=== PATIENT | male | born 1955 | race Caucasian/White ===

== ENCOUNTER 2017-02-09 21:20 | Emergency (ER) | payer MEDICARE, MEDICAID ==
[2017-02-09 22:35] LABS: Bilirubin Negative (Negative); Blood, Urine Large (Negative); Clarity CLEAR (Clear); Glucose, Urine (Dipstick) Negative (Negative); Leukocyte Small (Negative); Nitrite Negative (Negative); Protein, Urine (Dipstick) Negative (Neg-Trace); Specific Gravity, Urine 1.026 (1.002-1.036); Urobilinogen 0.2 mg/dL (0.2-1.0); pH, Urine 5.5 (5.0-9.0)
[2017-02-09 22:37] LABS: Bacteria/HPF None Seen HPF (None Seen); Hyaline Casts/LPF 0-3 HYALINE CAST LPF (0-3 Hyaline); RBC/HPF GREATER THAN 50-TNTC HPF (0-3); Squamous Epithelial 0-3 HPF (0-3)
== END 2017-02-09 23:38 | disposition home or self-care (01) ==
LOC: ERS 21:20
DX: N39.0 Urinary tract infection, site not specified (principal); L80 Vitiligo; E03.9 Hypothyroidism, unspecified
CPT/HCPCS: 81003; 81015; 99283

== ENCOUNTER 2017-06-28 09:35 | Outpatient (CLI) | payer MEDICARE, MEDICAID ==
--- NOTE | 2017-06-28 12:06 | ULT ---
THYROID ULTRASOUND: Indication: Hypothyroidism. Comparison: 06-13-16 FINDINGS: The right thyroid lobe measures 3.6 x 1.4 x 1.1 cm. The left thyroid lobe measures 3.1 x 1.2 x 1.7 cm. The thyroid isthmus measures 0.4 cm. Again seen is a very heterogeneous thyroid gland. A more heterogeneous hypoechoic lesion was measured on the prior exam, measuring approximately 1.3 x 0.9 cm. A more discrete nodule is visualized in thi s region on the current examination measuring 0.8 cm in its greatest dimension. The lesion is solid w ith isoechoic to hyperechoic subcomponents. The lesion does appear wider than tall with ill-defined m argins and no specific calcifications. It is consistent with a TIRADS III lesion. A similar appearing lesion is seen within the posterior aspect of the right thyroid gland measuring 3 mm in size. An additional TIRADS III lesion is seen within the left thyroid gland measuring 1.2 x 0.6 x 0.8 cm. T his is stable to the prior exam. There is a 9 mm TIRADS III lesion within the superior pole of the le ft thyroid gland. The extent of the vascularity involving the thyroid gland appears slightly less pro minent than on the prior study. IMPRESSION: 1. Stable examination of the thyroid gland with heterogeneous nodules seen throughout the thyroid gla nd with slight increase in vascularity. This can be seen with thyroiditities such as Ce. 2. 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 No additional follow up is recommen ded for these nodules due to their size. POS: [facility]
== END 2017-06-28 09:36 | disposition home or self-care (01) ==
LOC: ULT 09:35
PROVIDERS: ATTEND Otolaryngology Plastic Surgery within the Head & Neck
DX: E03.9 Hypothyroidism, unspecified (principal); E04.2 Nontoxic multinodular goiter
CPT/HCPCS: 76536

== ENCOUNTER 2017-07-21 22:06 | Inpatient (IN) | payer MEDICARE, MEDICAID ==
[2017-07-21 23:07] LABS: Hemoglobin 11.5 g/dL (14.0-18.0); Mean Corpuscular Hemoglobin 33.6 pg (27.0-31.0); Mean Platelet Volume 5.3 fL (7.4-10.4); Platelet Count 205 thou/uL (130-400); RBC Distribution Width 14.7 % (11.5-14.5); Red Blood Cell (RBC) Count 3.41 mill/uL (4.70-6.10)
[2017-07-21 23:15] LABS: ALT (SGPT) 17 U/L (8-55); AST (SGOT) 23 U/L (5-34); Alkaline Phosphatase 69 U/L (40-150); Anion Gap 11 mmol/L (10-20); BUN (Urea Nitrogen) 20 mg/dL (8.4-25.7); Bilirubin, Total 0.2 mg/dL (0.2-1.2); Calc. Creatinine Clearance 0 mL/min (70-130); Calcium 8.4 mg/dL (7.8-10.44); Carbon Dioxide 27 mmol/L (23-31); Chloride 108 mmol/L (98-107); Estimated GFR-MDRD 44; Globulin 3.3 g/dL (2.4-3.5); Glucose 162 mg/dL (80-115); Potassium 4.1 mmol/L (3.5-5.1); Protein, Total 6.3 g/dL (5.8-8.1); Sodium 142 mmol/L (136-145)
[2017-07-21 23:20] LABS: Anisocytosis SLIGHT = 6-15 cells (100X) (0-5/hpf); Band 28 % (5-11); Lymphocytes 2 % (21-51); MDiff Complete? YES; Macrocytosis SLIGHT = 6-15 cells (100X) (0-5/hpf); Neutrophil 70 % (42-75)
[2017-07-21 23:53] LABS: Magnesium 1.6 mg/dL (1.6-2.6)
[2017-07-22] MEDS ORDERED: Lidocaine 1% (PF) 30 ML VIAL ONE (02:21)
[2017-07-22] MEDS ORDERED: Norepinephrine 8 MG/0.9% NS 250 ML ONE (02:47)
[2017-07-22] MEDS ORDERED: Piperacillin/Tazobactam 4.5 GM VIAL ONE (02:47)
[2017-07-22] MEDS ORDERED: Bacitracin Zinc 1 Packet ONE (03:03)
[2017-07-22] MEDS ORDERED: Norepinephrine 8 MG in Sodium Chloride 0.9% 250 ML 250 ML IVPB SCH (04:45)
[2017-07-22] MEDS ORDERED: Norepinephrine 8 MG/0.9% NS 250 ML IVPB SCH (05:00)
[2017-07-22 05:04] LABS: Lactic Acid 2.5 mmol/L (0.5-2.2)
[2017-07-22] MEDS: Piperacillin/Tazobactam 3.375 GM in Sodium Chloride 0.9% 100 ML IVPB SCH ×3 (05:41→16:33)
[2017-07-22] MEDS: Sodium Chloride 0.9% 1,000 ML IV SCH ×2 (05:41→16:34)
[2017-07-22] MEDS ORDERED: Sodium Chloride 0.9% 500 ML IV SCH (06:45)
[2017-07-22] MEDS ORDERED: Sodium Chloride 0.9% 1,000 ML IV SCH (06:45)
--- NOTE | 2017-07-22 09:15 | RAD ---
CHEST 1 VIEW: HISTORY: CHEST 1 VIEW: HISTORY: Central line placement. COMPARISON: Earlier exam same date. FINDINGS: Cardiac silhouette magnified and enlarged. Pulmonary vasculature is slightly more engorged. The pat ient is rotated leftward. Linear atelectasis projects over the right lung base. The tip of a right subclavian central venous catheter overlies the right atrium. No evidence of pneumothorax. child monitor leads overlie the chest. IMPRESSION: 1. Right subclavian central venous catheter is in good radiographic position. 2. Interval increased pulmonary vascular congestion and right basilar atelectasis. POS: [facility]
[2017-07-22 09:20] LABS: Bacteria/HPF 3+ HPF (None Seen); Hyaline Casts/LPF NONE SEEN LPF (0-3 Hyaline); RBC/HPF 0-3 HPF (0-3); Squamous Epithelial 0-3 HPF (0-3); WBC/HPF 0-3 HPF (0-3)
--- NOTE | 2017-07-22 09:24 | ULT ---
SONOGRAM RIGHT UPPER QUADRANT: HISTORY: Abdominal pain. FINDINGS: Gallbladder is incompletely distended. The patient was not tender over the gallbladder fossa at the time of the exam. The wall is thickened up to 1.2 cm with a small amount of pericholecystic fluid. Common duct 0.5 cm. Liver heterogeneous. A lobular 2.1 cm hyperechoic lesion at the posterior aspec t left lower lob likely represents a hemangioma. No significant free fluid. Right renal cyst partia lly visualized. IMPRESSION: Mild gallbladder wall thickened, the gallbladder is not distended and the patient was not tender over the gallbladder fossa at the time of the exam. Gallbladder wall thickening is nonspecific and may b e related to other process such as chronic liver disease. Findings are not highly suggestive of acut e cholecystitis. POS: [facility]
--- NOTE | 2017-07-22 09:36 | CT ---
PRELIMINARY REPORT/[facility]/EMERGENCY AFTER HOURS PROCEDURE: EXAM: CT Abdomen and Pelvis Without Intravenous Contrast EXAM DATE/TIME: 07/22/2017 12:18 AM CLINICAL HISTORY: 61 years old, male; Pain; Abdominal pain; Generalized; Patient HX: M61 presents to the ed complaining of abdominal pain. Pt. Family states that pt. Has had 2 episodes of vomiting and 2 episodes of diarr hea today TECHNIQUE: Axial computed tomography images of the abdomen and pelvis without intravenous contrast. Coronal reformatted images were created and reviewed. COMPARISON: No relevant prior studies available. FINDINGS: Lung bases: Mild atelectasis in the left lung base. ABDOMEN: Liver: Unremarkable. Gallbladder and bile ducts: Diffuse gallbladder wall thickening. No obvious stones or duct dilation. Pancreas: Unremarkable. No ductal dilation. Spleen: Unremarkable. No splenomegaly. Adrenals: Unremarkable. No mass. Kidneys and ureters: There are multiple non-obstructing bilateral renal calculi. Stomach and bowel: There is diverticular disease of the colon, without evidence of acute diverticulit is. No perforation, or abscess. No signs or history of bleeding provided. No obstruction. PELVIS: Appendix: A normal appendix is identified. Bladder: Apparent bladder wall thickening may be secondary to incomplete filling versus cystitis. No stones. Reproductive: The prostate gland is enlarged. ABDOMEN and PELVIS: Intraperitoneal space: Unremarkable. No free air. No significant fluid collection. Bones/joints: No acute fracture. No dislocation. Soft tissues: Unremarkable. Vasculature: Unremarkable. No abdominal aortic aneurysm. Lymph nodes: Unremarkable. No enlarged lymph nodes. IMPRESSION: Gallbladder wall thickening, correlate clinically for acute cholecystitis. Apparent bladder wall thickening may be secondary to incomplete filling versus cystitis. Clinical and laboratory correlation recommended. No other acute abnormality. Thank you for allowing us to participate in the care of your patient. Dictated and Authenticated by: Vilma Gross MD 07/22/2017 12:58 AM Central Time ([place] & [place]) FINAL REPORT CT ABDOMEN AND PELVIS NONCONTRAST: DATE: 07/22/17. TIME: Performed on an emergency basis at 0020 hours. HISTORY: Bilateral flank pain. FINDINGS: Agree with the preliminary report by Dr. Jarrett from [facility]. Thickening of the gallbla dder wall could reflect acute inflammation. Clinical correlation regarding other signs and symptoms of acute cholecystitis is required. Urinary bladder incompletely distended. Small nonobstructing bi lateral renal calculi. Lack of contrast limits evaluation of the soft tissues. POS: [facility]
--- NOTE | 2017-07-22 09:43 | RAD ---
CHEST 1 VIEW: History Dyspnea. FINDINGS: No comparison. Cardiac silhouette magnified by projection. Pulmonary vasculature upper limits of no rmal with mild reticulonodular interstitial prominence. Mediastinum midline. No lobar consolidation or evidence of pneumothorax. environmental monitoring specialist leads overlie the chest. IMPRESSION: Borderline pulmonary vascular prominence. No florid edema or lobar consolidation. POS: [facility]
[2017-07-22] MEDS: Heparin 5,000 UNITS/ML VIAL SC SCH ×3 (10:54→20:40)
[2017-07-22] MEDS: Hydrocortisone Sod Succ/PF 100 mg/2 ml Vial IVP SCH ×2 (11:08→16:33)
--- NOTE | 2017-07-22 12:13 | HP ---
CHIEF COMPLAINT: Abdominal pain, nausea, vomiting. HISTORY OF PRESENT ILLNESS: The patient is a 61-year-old male, who lives in a care home. The patie nt has a history of mental retardation and he initially used to live with his sister; however, now li ves in a care home. The patient's sister who is at the bedside, stated that he was called from the care home, stating that patient had 2 episodes of vomiting and 2 episodes of diarrhea today. The pa armando also has been complaining of abdominal pain. The patient was then brought into the hospital fo r an evaluation. The patient currently is unable to provide any history; however, he does state that he does have pain in his abdomen. No diarrhea has been noted since the patient has been in the ER, nor have any nausea or vomiting been noted. PAST MEDICAL HISTORY: History of hypothyroidism, history of frequent UTIs in the past. PAST SURGICAL HISTORY: The patient has unable to obtain any kind of surgical history since patient d oes not know. SOCIAL HISTORY: Denies per family. No alcohol or drug use or smoking history. ALLERGIES: He has got no known allergies. MEDICATIONS: Per chart is iron 325 one daily, vitamin B12 one daily, levothyroxine 100 mcg daily and there are 2 antibiotics that are noted Cipro and Keflex, and the patient's family does not know if h e takes that or if that is past medication history. REVIEW OF SYSTEMS: Unable to obtain since the patient is unable to provide me review of systems. PHYSICAL EXAMINATION: VITAL SIGNS: Blood pressure of 90/57, pulse of 100, respirations are 18, and O2 sat 99% room air. GENERAL: He is awake, alert, follows commands, oriented to self. CARDIOVASCULAR: S1 and S2 present, sinus tachycardia. LUNGS: Clear to auscultation. No rhonchi or wheezes noted. ABDOMEN: Bowel sounds are present x2. Pain upon palpation of the right upper quadrant epigastric ar ea and also bilateral lower abdomen area. EXTREMITIES: No edema. Pedal pulses are present x2. HEENT: Normocephalic, atraumatic. Patient's mucous membranes are very dehydrated, very dry. SKIN: Patient has vitiligo. LABORATORY DATA: As following, WBCs of 11.0, however, bands of 28, hemoglobin of 11.5, hematocrit of 35.8, platelets of 205. Chemistry: Sodium of 142, potassium of 4.1, chloride of 108, BUN of 20, cr eatinine of 1.59, lactic acid of 2.5. Lipase is 18. LFTs are normal. The patient did have a CT abd omen and pelvis, which indicated thickening of the gallbladder and thickening of the bladder, unable to get a urine sample given patient's anatomy. The ED physician did attempt to surgically excise his foreskin for the urinary catheter to pass; however, unsuccessful. The patient's chest x-ray appears that he does have some pulmonary congestion, mild. There is a left retrocardiac significant possibl e infiltrate. ASSESSMENT AND PLAN: The patient is a very pleasant 61-year-old male, who lives in a care home, com es in for abdominal pain, nausea, and vomiting. 1. Sepsis could be possible from a urinary tract infection versus acute cholecystitis versus even pn eumonia. A right upper quadrant ultrasound has been ordered for this patient. I will start the roman ent on broad spectrum antibiotics with Zosyn and vancomycin. According to the family, has been havin g significant amounts of frequent UTIs. Last urine culture in May, indicated a normal skin alvin; however, the culture prior to that also indicated normal skin alvin. The patient's family states yina t he is known to hold, does not go to the bathroom frequently. The patient was given 2-1/2 liters of normal saline, still continued to be hypotensive and was started on Levophed. Blood cultures were d rawn. Urine culture has not been drawn since unable to get a urine culture. 2. Leukocytosis with bandemia, most likely secondary to his underlying sepsis. 3. Acute kidney injury on chronic kidney disease. Mild elevation of creatinine, most likely seconda ry to dehydration, we will continue to monitor. The patient's bladder was scanned by the nurse and s tated that patient had only 120 mL in his bladder. 4. Lactic acidosis, most likely secondary to his sepsis. The patient currently has been admitted to the CCU. Also, code status was discussed with the patient's family, the patient's sister, who is th e POA. The patient's sister currently wants him to be FULL CODE; however, they are very reasonable a nd stated that if in any event the patient was unable to walk around and enjoy food, they would not d o heroic measures to keep him alive. The patient at baseline, he is able to ambulate and socialize w ith other group members at his care home. 5. Deep vein thrombosis prophylaxis. We will put patient on subcu heparin.
[2017-07-22] MEDS ORDERED: Bupivacaine/Epinephrine 0.25% 30 ML VIAL ONE (12:25)
[2017-07-22] MEDS ORDERED: Fentanyl 100 MCG/2 ML VIAL ONE (12:40)
[2017-07-22] MEDS ORDERED: HYDROmorphone 0.5 MG/0.5 ML SYRINGE ONE (12:40)
--- NOTE | 2017-07-22 13:02 | CON ---
DATE OF CONSULTATION: 07/22/2017 REQUESTING PHYSICIAN: Dr. Romario Singer. HISTORY OF PRESENT ILLNESS: Mr. Lott is a 61-year-old man with a developmental disorder who is a resident of a usp. Apparently, the family was notified earlier in the day that the patient was having multiple episodes of emesis and diarrhea. EMS was called. The patient was brought to the emergency department. He ar rived emergency department somewhat sleepy and confused. His blood pressure was quite low. He required almost 5 liters of crystalloids for resuscitation. Initial workup at the time included a CT scan of the abdomen and pelvis, which was suggestive of acut e cholecystitis. The patient was admitted to intensive care unit with broad spectrum antibiotics initiated. Faust cat heter was placed and urinalysis has been initiated. The patient is currently on vasopressor support. His blood pressure has since stabilized. He is vicente ble to give history, so most of the history is obtained from chart review and from speaking to the pa armando's sister and power of trade mark attorney. PAST MEDICAL HISTORY: Pertinent for hypothyroidism. PAST SURGICAL HISTORY: Has no previous surgeries. SOCIAL HISTORY: He resides at a [facility]. He has no cigarette smoking, ethanol or illicit drug ab use history. FAMILY HISTORY: Noncontributory for this patient's age. PREHOSPITAL MEDICATIONS: Incudes ferrous sulfate 325 mg p.o. daily, vitamin B12 500 mcg p.o. daily, ciprofloxacin 250 mg p.o. daily, levothyroxine 100 mcg p.o. daily. ALLERGIES: Patient has no known drug allergies. REVIEW OF SYSTEMS: Could not be obtained due to this patient's baseline mental status. PHYSICAL EXAMINATION: VITAL SIGNS: This morning includes blood pressure 101/74, pulse is 102, respiratory rate is 17. Pat ient is on norepinephrine by continuous infusion. Oxygen saturation is 93% on 1 liter nasal cannula oxygen. HEENT: Reveals normocephalic and atraumatic. Pupils are equal, round, and reactive to light and acc ommodation. Extraocular muscles are intact bilaterally. He has no sclerae icterus present. HEART: Reveals regular rate with mild sinus tachycardia. No murmurs or gallops auscultated. CHEST: Lungs clear to auscultation bilaterally. Breathing regular and unlabored. ABDOMEN: Moderately distended and firm. He has right upper quadrant tenderness to palpation. Liver and spleen otherwise nonpalpable below costal margin. EXTREMITIES: Reveals 2+ radial and pedal pulses bilaterally. No ankle edema is present. NEUROLOGIC: Reveals no focal deficits present. PERTINENT LABORATORY DATA: Today includes CBC with 11,000 white blood cells, hemoglobin and hematocr it 11.5 and 35.8 respectively. Platelet count is 205,000. Metabolic profile: Sodium 142, potassium is 4.1, chloride is 108, bicarbonate is 27, BUN 20, creatinine is 1.59, glucose 162. Lactic acid 2. 5, magnesium 1.6, total bilirubin 0.2, AST and ALT normal at 23 and 17 respectively. Serum lipase is normal at 18. I have personally reviewed the CT scan of the abdomen and pelvis as well as the abdominal ultrasound obtained this morning, both of which are consistent with a markedly inflamed gallbladder with signifi cant gallbladder wall thickening. There is no gallstone seen. IMPRESSION: 1. Acute gangrenous acalculous cholecystitis. 2. Severe septic shock secondary to #1. 3. Acute kidney injury, secondary to #1. PLAN: Laparoscopic cholecystectomy. I have informed the patient's power of trade mark attorney of the above fi ndings and recommendations. I have also informed her of the risks and benefits of the proposed surge ry to include, but not limited to bleeding, infection, injury to bile duct or surrounding structures. The patient's power of trade mark attorney indicates understanding of information given. I answered her all q uestions. She has granted consent for this surgical intervention.
--- NOTE | 2017-07-22 13:57 | CON ---
DATE OF CONSULTATION: 07/22/2017 Consultation is requested for what is listed is paraphimosis, but this is not what he had. He only had phimosis--unless a procedure was done in the ER to reduce paraphimosis. I doubt that, as there was no swelling of the prepuce/ prepucial tissue, and there was difficulty with getting a catheter placed. HISTORY OF PRESENT ILLNESS: The patient is a 61-year-old gentleman with special needs. He has minimal ability to converse, but seems to be admitted with abdominal pain, nausea, vomiting, and diarrhea from a long term and I asked if he has penile pain, he confirms; however, he answers yes to multiple questions and I am not sure if this is an accurate answer. PAST MEDICAL HISTORY: Significant for mental retardation with special needs and hypothyroid. PAST SURGICAL HISTORY: I do not see anything listed, so I am unsure of whether he has had any actual surgeries. ALLERGIES: None. MEDICATIONS: Iron, vitamin B12, Align and it is listed that he was already on Keflex and Cipro, I do not know why, Synthroid. SOCIAL HISTORY: Not aware of any alcohol or drug abuse from his history and he does live in a facility. REVIEW OF SYSTEMS: He is unable to give me this, but in reviewing prior records , it looks like he had a urinary tract infection diagnosed in 01/2017 and presented to the ER 2 days after starting antibiotics with gross hematuria and was discharged out and not admitted. As best I can tell, he has not had urologic follow up. He also had a recent thyroid ultrasound in June of this year that showed stable heterogeneous nodules and nothing of concern consistent with Ce's. FAMILY HISTORY: I do not see any documentation of this. PHYSICAL EXAMINATION: GENERAL: He is lying comfortably in the bed. He has significant vitiligo with prominent hyperpigmentation and hypopigmentation of his face. NECK: He has no obvious JVD. CARDIOVASCULAR: His heart was regular rate and rhythm. Borderline tachycardic. LUNGS: He had bilateral rhonchi. ABDOMEN: Soft, mildly distended, no significant tenderness. GENITOURINARY: Testes were descended bilaterally. Phallus was uncircumcised with phimosis and it appears as though a procedure or some type of incision had already been performed in the ED as there was slight bleeding that had coagulated and laceration noted, but no Faust in place. EXTREMITIES: There was no lower extremity edema. NEUROLOGIC: From a patient orientation standpoint, he responded in appropriate fashion to questions, but simply with nods and no significant verbal communication was had to assess his orientation. LABORATORY DATA AND IMAGING: Reveal to have anemia and a white count of 11.0. BUN and creatinine of 20 and 1.59, which his baseline appears to be 1.25. No urinalysis has at this time. CT scan without contrast from 07/22/2017 personally revealed a 6 x 5 mm left lower pole stone with a uniformly thickened bladder, enlarged prostate with intravesical components, but no hydronephrosis or masses. I then placed a catheter after evaluating the foreskin, it was questionable whether a catheter would go through the very narrow prepuce opening, but he was prepped and draped in sterile fashion, and then a 16 Coude was manipulated beyond the phimotic skin and into the urethra without any difficulty. Then it was placed into the bladder with some resistance noted. So he may have some urethral narrowing, but no obvious stricture. It was placed all the way into the bladder without significant difficulty for yellow urine that was then sent for both microscopic analysis and culture. ASSESSMENT AND PLAN: We have a 61-year-old male with concerns for sepsis without an obvious etiology, but concern for cholecystitis and possible urinary tract infection with obvious phimosis, who now has an indwelling catheter, and is on IV antibiotics. I would await culture and taper antibiotics accordingly-- and the length of time would depend on his blood cultures being positive or not. He can continue the indwelling for now, and I will order when to remove it. In the long-term, he needs a circumcision. [facility]
--- NOTE | 2017-07-22 14:11 | CON ---
DATE OF CONSULTATION: 07/22/2017 HISTORY OF PRESENT ILLNESS: Parveen Lott this morning is in the ICU, hypotensive with presumed sep sis. Admitted last night with concerns regarding ICU care. Surgery has seen the patient on emergenc y basis and told has a plan to do an emergency cholecystectomy. The patient apparently presented to the ER with abdominal pain, nausea, and vomiting. He was found to have acute cholecystitis. PAST MEDICAL HISTORY: Apparently pertinent for hypothyroidism. Presumed B12 deficiency. MEDICATIONS: His list of medicine from home includes Synthroid 100, vitamin B, ferrous sulfate. PAST SURGICAL HISTORY: Apparently none. ALLERGIES: None. REVIEW OF SYSTEMS: Difficult to obtain. PHYSICAL EXAMINATION: VITAL SIGNS: Blood pressure 101/74, sats are 94% on 2 liters, respirations 18, pulse 80. GENERAL: Awake, responsive, denies any discomfort. CHEST: Decreased breath sounds without any wheezing. CARDIAC: Normal S1, S2, no gallop. ABDOMEN: Distended, soft. LABORATORY DATA: White count 11,000, H and H 11 and 35, platelet count 205, 70 segs, and 28 bands. Creatinine 1.59. IMPRESSION: 1. Sepsis secondary to cholecystitis. 2. Phimosis. PLAN: He was started on vancomycin and Zosyn which should be probably adequate. I have ordered a co rtisol level. Start low dose hydrocortisone. We will follow while in the ICU. Surgery is contemplated later on today. This is a consultation note, 70 minutes of which 50% in direct patient care.
[2017-07-22] MEDS ORDERED: Promethazine HCl 25 MG/ML VIAL IM PRN (14:14)
[2017-07-22] MEDS ORDERED: Promethazine HCl 25 MG/ML VIAL SLOW IVP PRN (14:14)
[2017-07-22] MEDS ORDERED: Ondansetron HCl/PF 4 MG/2 ML Vial IVP PRN (14:14)
[2017-07-22] MEDS: traMADol HCl 50 MG TAB PO PRN (15:36)
--- NOTE | 2017-07-22 15:49 | PDOC.PN ---
- Subjective Encounter Start Date: 07/22/17 Encounter Start Time: 15:47 Subjective: alert, nonvebal, no distress - Objective MAR Reviewed: Yes Vital Signs & Weight: Vital Signs (12 hours) Temp Pulse Resp Pulse Ox 07/22/17 08:00 98.6 F 94 18 94 L 07/22/17 07:00 98.6 F 07/22/17 06:49 94 L 07/22/17 05:24 99.4 F Weight Admit Weight 130 lb 11.746 oz Weight 130 lb 11.746 oz Most Recent Monitor Data Heart Rate from ECG 79 NIBP 107/63 NIBP BP-Mean 79 Respiration from ECG 10 SpO2 94 I&O: 07/21/17 07/22/17 07/23/17 06:59 06:59 06:59 Intake Total 39.3 500 Output Total 0 460 Balance 39.3 40 Result Diagrams: 07/21/17 22:45 07/21/17 22:45 Phys Exam - Physical Examination Neck: no JVD Respiratory: clear to auscultation bilateral Cardiovascular: RRR, no significant murmur Gastrointestinal: soft, positive bowel sounds mildly tender, post lap brad Musculoskeletal: no edema Dx/Plan (1) Sepsis Code(s): A41.9 - SEPSIS, UNSPECIFIED ORGANISM Status: Acute Qualifiers: Sepsis type: sepsis due to unspecified organism Qualified Code(s): A41.9 - Sepsis, unspecified organism (2) Sepsis associated hypotension Code(s): A41.9 - SEPSIS, UNSPECIFIED ORGANISM Status: Acute (3) Lactic acidosis Code(s): E87.2 - ACIDOSIS Status: Acute (4) Acute renal failure Status: Acute Qualifiers: Acute renal failure type: unspecified Qualified Code(s): N17.9 - Acute kidney failure, unspecified - Plan post brad -: taper pressors as possible, no Hx on his Nl BP -: cont iv antibx, blood, urine EDWIN pending * .
--- NOTE | 2017-07-22 16:59 | OP ---
DATE OF OPERATION: 07/22/2017 PREOPERATIVE DIAGNOSIS: Acute cholecystitis. POSTOPERATIVE DIAGNOSIS: Acute cholecystitis. OPERATIONS PERFORMED: Laparoscopic cholecystectomy. SURGEON: True Carter D.O. ANESTHESIA: General endotracheal. ESTIMATED BLOOD LOSS: 10 mL. FLUIDS GIVEN: 900 mL crystalloids. SPONGE AND INSTRUMENT COUNT: Certified as correct x2. COMPLICATIONS: None apparent. INDICATIONS FOR OPERATION: A 61-year-old man presented with abdominal pain associated with hypotensi on. Clinical and radiographic examination was consistent with acute cholecystitis with severe septic shock. The patient was brought to the operating room for laparoscopic cholecystectomy. Findings are consistent with gallbladder in the usual anatomic location, completely encased by omenta l adhesions. There was a large pericholecystic fluid noted. No evidence of a gangrenous cholecystit is. DESCRIPTION OF OPERATION: Informed consent obtained from the patient's power of mergers and acquisitions attorney. The patie nt was brought to the operating room and placed in spine position. Following general anesthesia, a p revious Faust catheter was placed to bedside drain. The abdomen was sterilely prepped and draped in usual fashion. The skin below the umbilicus was infiltrated with 0.25% Marcaine with epinephrine. A small curvilinear infraumbilical incision was made using an 11 scalpel. Umbilical stalk grasped wit h Cammie and elevated. Veress needle inserted through the incision and placed in the peritoneal cavi ty through which the abdomen was insufflated with 3 liters of CO2 gas. Intraabdominal pressure noted at 2 mmHg. Following abdominal insufflation, Veress needle was removed and a 5-mm trocar introduced using the Visiport under laparoscopy. Laparoscopy confirmed proper placement of the port, no injuri es to underlying structures. Additional laparoscopy reveals gallbladder in the usual anatomic locati on, completely encased by omental adhesions. Under direct laparoscopy, a 12-mm epigastric and two 5- mm right lateral subcostal ports were placed after the overlying skin were infiltrated with 0.25% Mar carina with epinephrine and appropriate incisions made. The patient was placed in a reverse Trendelenburg position, rotated to his left. I introduced the Chance orourke dissector with cautery, using this to take down omental adhesions to reveal the fundus of the gallbladder. A MyLuvsige grasper introduced through the right lateral subcostal port grasping the fun dus of the gallbladder, which was elevated cephalad. I then used a [place] dissector with cautery t o take down omental adhesions from the remainder of the gallbladder. A second Prestige grasper intro duced through the right medial subcostal port grasping the Arias's pouch, which was retracted later ally. An anterior coursing cystic artery was dissected free from surrounding structures and divided between clips. Two clips applied proximally and one clip at the junction of the cystic artery and ga llbladder. The cystic duct was dissected free from surrounding structures and divided between clips in a similar fashion. Gallbladder surface removed from the liver bed using cautery. This was then d elivered off the abdominal cavity using an EndoCatch. Operative site was inspected for good hemostas is. All clips remain in place, no bile stains noted. Finding no other pathology, laparoscopy was te rminated. Fascia of the epigastric port was closed using 0 Vicryl suture and Endo closure device und er laparoscopy. The abdomen was desufflated. All ports and instruments removed and accounted for. Skin incisions were closed using 4-0 Monocryl suture in subcuticular fashion. Dermabond was applied over the incisions. The patient tolerated the operation without any apparent complication and was re turned to the recovery room in satisfactory condition.
[2017-07-22] MEDS ORDERED: PROPOFOL 200 MG/20 ML VIAL ONE (18:10)
[2017-07-22] MEDS ORDERED: Lidocaine 1% PF 5 ML VIAL ONE (18:10)
[2017-07-22] MEDS: Acetaminophen 500 MG TAB PO SCH (20:39)
[2017-07-23] MEDS: Piperacillin/Tazobactam 3.375 GM in Sodium Chloride 0.9% 100 ML IVPB SCH ×5 (00:01→23:12)
[2017-07-23] MEDS: Hydrocortisone Sod Succ/PF 100 mg/2 ml Vial IVP SCH ×2 (00:01→05:14)
[2017-07-23] MEDS: Acetaminophen 500 MG TAB PO SCH ×5 (00:02→23:13)
[2017-07-23] MEDS: Sodium Chloride 0.9% 1,000 ML IV SCH ×3 (00:03→20:58)
[2017-07-23 01:07] LABS: Vancomycin, Trough 3.9 ug/mL
[2017-07-23] MEDS ORDERED: Vancomycin HCl 1 GM in Premix Bag 1 BAG IVPB SCH (01:30)
[2017-07-23 04:46] LABS: Band 31 % (5-11); Hemoglobin 10.8 g/dL (14.0-18.0); Lymphocytes 1 % (21-51); MDiff Complete? YES; Mean Corpuscular HGB CONC 33.2 g/dL (32.0-36.0); Mean Corpuscular Hemoglobin 34.9 pg (27.0-31.0); Monocytes 5 % (0-10); Neutrophil 63 % (42-75); Platelet Count 138 thou/uL (130-400); RBC Distribution Width 14.7 % (11.5-14.5); Red Blood Cell (RBC) Count 3.09 mill/uL (4.70-6.10); White Blood Cell (WBC) Count 30.1 thou/uL (4.8-10.8)
[2017-07-23 05:12] LABS: ALT (SGPT) 54 U/L (8-55); AST (SGOT) 60 U/L (5-34); Albumin 2.6 g/dL (3.4-4.8); Alkaline Phosphatase 53 U/L (40-150); Bilirubin, Direct 0.2 mg/dL (0.1-0.3); Bilirubin, Total 0.3 mg/dL (0.2-1.2); Protein, Total 5.8 g/dL (5.8-8.1)
[2017-07-23 05:14] LABS: ALT (SGPT) 53 U/L (8-55); AST (SGOT) 60 U/L (5-34); Albumin 2.6 g/dL (3.4-4.8); Alkaline Phosphatase 55 U/L (40-150); Anion Gap 8 mmol/L (10-20); BUN (Urea Nitrogen) 18 mg/dL (8.4-25.7); Bilirubin, Total 0.3 mg/dL (0.2-1.2); Calc. Creatinine Clearance 54 mL/min (70-130); Calcium 7.6 mg/dL (7.8-10.44); Carbon Dioxide 23 mmol/L (23-31); Chloride 111 mmol/L (98-107); Estimated GFR-MDRD 62; Globulin 3.2 g/dL (2.4-3.5); Glucose 244 mg/dL (80-115); Potassium 4.4 mmol/L (3.5-5.1); Protein, Total 5.8 g/dL (5.8-8.1); Sodium 138 mmol/L (136-145)
[2017-07-23] MEDS: traMADol HCl 50 MG TAB PO PRN ×2 (06:31→12:53)
--- NOTE | 2017-07-23 09:20 | PDOC.PN ---
- Subjective Encounter Start Date: 07/23/17 (f/u sepsis) Encounter Start Time: :18 Subjective: Pt without complaints, and none verbalized by family. no overnight events -: levophed d/c this morning - Objective Vital Signs & Weight: Vital Signs (12 hours) Temp Pulse Resp Pulse Ox 07/23/17 07:37 98.4 F 75 17 94 L 07/23/17 05:00 98.4 F 07/23/17 01:00 98.4 F Weight Admit Weight 130 lb 11.746 oz Weight 130 lb 11.746 oz Most Recent Monitor Data Heart Rate from ECG 75 NIBP 95/58 NIBP BP-Mean 65 Respiration from ECG 14 SpO2 98 I&O: 07/22/17 07/23/17 07/24/17 06:59 06:59 06:59 Intake Total 39.3 4677.4 0 Output Total 0 1550 0 Balance 39.3 3127.4 0 Result Diagrams: 07/23/17 03:38 07/23/17 03:38 Phys Exam - Physical Examination Constitutional: NAD Respiratory: no wheezing, no rales, no rhonchi Cardiovascular: RRR, no significant murmur Gastrointestinal: soft, positive bowel sounds hypoactive bs Musculoskeletal: no edema Neurological: non-focal Deviation from normal: Pt with speech impediment and MR - unable to assess for orientation Skin: no rash Deviation from normal: extensive vitiligo Dx/Plan (1) Acute cholecystitis Code(s): K81.0 - ACUTE CHOLECYSTITIS Status: Acute (2) Mental retardation Code(s): F79 - UNSPECIFIED INTELLECTUAL DISABILITIES Status: Chronic (3) Acute renal failure Status: Resolved Qualifiers: Acute renal failure type: unspecified Qualified Code(s): N17.9 - Acute kidney failure, unspecified (4) Sepsis Code(s): A41.9 - SEPSIS, UNSPECIFIED ORGANISM Status: Acute Qualifiers: Sepsis type: sepsis due to unspecified organism Qualified Code(s): A41.9 - Sepsis, unspecified organism (5) Sepsis associated hypotension Code(s): A41.9 - SEPSIS, UNSPECIFIED ORGANISM Status: Acute - Plan * s/p brad yesterday - continue IV antibiotics per surgery * cultures negative * continue ivf for now - monitor bp's off levophed - transfer to floor if bp's remain normal this morning * will order PT * * dvt prophy - heparin * gi prophy - not indicated * code status - full. * * reviewed plan of care with family, no questions or further needs at end of eval.
[2017-07-23] MEDS: Heparin 5,000 UNITS/ML VIAL SC SCH ×3 (09:48→21:12)
[2017-07-23] MEDS ORDERED: Nystatin Powder 15 GM BOT TOP PRN (10:56)
--- NOTE | 2017-07-23 10:56 | PRG ---
DATE OF SERVICE: 07/23/2017 SUBJECTIVE: This morning, awake, alert and responsive. No longer hypertensive. He is off all his p ressors. He is eager to go home. OBJECTIVE: VITAL SIGNS: Blood pressure is 95/58, sats are 95% on room air, temperature 98, pulse 75. CHEST: Chest reveals decreased breath sounds without any wheezing. CARDIAC: Normal S1, S2, no gallops. ABDOMEN: Soft, no mass. LABORATORY DATA: White count is 30,000, H&H is 10 and 32, platelet count 138. IMPRESSION: 1. Acute cholecystitis, status post surgery. 2. Marked leukocytosis. His cortisol level was normal. His sepsis syndrome, resolved. PLAN: We will discontinue his hydrocortisone. Continue antibiotics. Probably deescalate tomorrow. He can probably be transferred out of the ICU as per Surgery. We will follow.
--- NOTE | 2017-07-23 10:58 | PDOC.EVN ---
Event Note - Event Note Event Note: RN Called and pt with white material between toes - uncertain duration. Will start antifungal powder. RN called and 2 blood cultures are positive - pt is covered on broad spectrum abx.
--- NOTE | 2017-07-23 11:44 | ADD-CON ---
ADDENDUM I was able to get hold of Mr. Lott' sister, legal guardian, she lives in [place]. The patient li ves in a residential in [place], Dr. Maggie Varela. Apparently, they called family members yesterday that he was having nausea, vomiting, and diarrhea, became hypertensive and dehydrated. Workup in the ER revealed acute cholecystitis. His underlying baseline medical problems is that, 1. He has got Down syndrome. 2. He has got hypothyroidism. He has never had any surgery in the past. Discussed with his sister that he is undergoing an acute cholecystectomy today, we will watch him in the ICU.
[2017-07-23] MEDS: Vancomycin HCl 1 GM in Premix Bag 1 BAG IVPB SCH (12:49)
--- NOTE | 2017-07-23 13:42 | PRG ---
DATE OF SERVICE: 07/23/2017 SUBJECTIVE: The patient did well since his urgent laparoscopic cholecystectomy. He has no complaint s at this time. OBJECTIVE: He remained afebrile with vital signs stable, still low blood pressure, but stable and herman mora heart rate is now in the 70s. He has been able to wean off his Levophed at 6:00 this morning as lo ng as his blood pressure stayed stable. There is anticipation for him to go to the floor. Today, herman mora penis is significantly edematous from the prepuce standpoint whereas yesterday there was none and t he Faust catheter still in place draining yellow urine. LABORATORY DATA: White count is going up. However, I think this is likely related to a delay in sera ction and his creatinine is now down to 1.19. ASSESSMENT: We have 61-year-old male admitted with sepsis status post urgent laparoscopic cholecyste ctomy as well as phimosis and possibly paraphimosis, but certainly reduced prior to my seeing him wit h a Faust catheter indwelling with a urinary tract infection and prior history of such. I discussed his situation with the nurse and his sister and niece and recommended a circumcision at this time. R isks and benefits of the procedure were reviewed with the patient and the family. All questions were answered. I suspect this would be best done while the patient is still in house and discussed doing it on Monday with the family; however, we were able to arrange that, we could get this done on , so I have made him n.p.o. and will anticipate doing a circumcision tomorrow.
--- NOTE | 2017-07-23 17:12 | PRG ---
DATE OF SERVICE: 07/23/2017 SUBJECTIVE: The patient remains on the critical care unit where he had been admitted for sepsis and was also noted to have an acute cholecystitis. Yesterday, he underwent laparoscopic cholecystectomy, which he tolerated well. This morning, he is tolerating a diet and he has been afebrile. The patie nt had no issues overnight. PHYSICAL EXAMINATION: VITAL SIGNS: Temperature is 98.1, heart rate 83, blood pressure 102/66, respirations 18, oxygen satu ration is 98% on room air. GENERAL: The patient is awake, alert, and eating breakfast this morning. ABDOMEN: Soft, flat, and minimally tenderness. His surgical sites are clean, dry and intact. LABORATORY DATA: White blood cell count 30.1, hemoglobin 10.8, hematocrit 32.5, platelets 138. Sodi um 138, potassium 4.1, chloride 111, CO2 of 23, BUN 18, creatinine 1.19, glucose 244, total bilirubin 0.3, direct bilirubin 0.2, AST 60, ALT 53, alkaline phosphatase 55. ASSESSMENT AND PLAN: Status post laparoscopic cholecystectomy. Plan will be to continue medical management per the primary team. The patient will need to follow up with us in 10 days for his postop visit. We will follow him from a distance for the remainder of hi s stay here in the hospital. The evaluation and examination were discussed with Dr. Emma zayas during rounds.
[2017-07-23] MEDS ORDERED: Furosemide 40 MG/4 ML VIAL SLOW IVP SCH (21:45)
[2017-07-24] MEDS: Vancomycin HCl 1 GM in Premix Bag 1 BAG IVPB SCH ×2 (01:51→14:35)
[2017-07-24] MEDS: Piperacillin/Tazobactam 3.375 GM in Sodium Chloride 0.9% 100 ML IVPB SCH ×3 (05:04→18:25)
[2017-07-24] MEDS: Acetaminophen 500 MG TAB PO SCH ×3 (05:04→18:00)
[2017-07-24] MEDS: Sodium Chloride 0.9% 1,000 ML IV SCH ×2 (05:05→19:39)
[2017-07-24 05:42] LABS: ALT (SGPT) 50 U/L (8-55); AST (SGOT) 46 U/L (5-34); Albumin 2.6 g/dL (3.4-4.8); Alkaline Phosphatase 61 U/L (40-150); Anion Gap 9 mmol/L (10-20); BUN (Urea Nitrogen) 18 mg/dL (8.4-25.7); Bilirubin, Total 0.2 mg/dL (0.2-1.2); Calc. Creatinine Clearance 62 mL/min (70-130); Calcium 7.8 mg/dL (7.8-10.44); Carbon Dioxide 24 mmol/L (23-31); Chloride 106 mmol/L (98-107); Estimated GFR-MDRD 69; Globulin 3.4 g/dL (2.4-3.5); Glucose 146 mg/dL (80-115); Potassium 3.9 mmol/L (3.5-5.1); Sodium 135 mmol/L (136-145)
[2017-07-24 06:04] LABS: Band 28 % (5-11); Hemoglobin 10.9 g/dL (14.0-18.0); MDiff Complete? YES; Mean Corpuscular HGB CONC 32.1 g/dL (32.0-36.0); Mean Corpuscular Hemoglobin 33.1 pg (27.0-31.0); Monocytes 3 % (0-10); Myelocyte 3 % (0-0); Neutrophil 66 % (42-75); Platelet Count 141 thou/uL (130-400); RBC Distribution Width 14.4 % (11.5-14.5); White Blood Cell (WBC) Count 25.4 thou/uL (4.8-10.8)
[2017-07-24] MEDS ORDERED: Bupivacaine 0.25% HCL 30 ML VIAL ONE (06:35)
[2017-07-24] MEDS ORDERED: Bacitracin Zinc Ointment 30 gm TUBE ONE (06:35)
[2017-07-24] MEDS ORDERED: Lidocaine 1% (PF) 30 ML VIAL ONE (06:35)
[2017-07-24] MEDS ORDERED: Midazolam HCl 2 mg/2 ml Vial ONE (06:48)
[2017-07-24] MEDS ORDERED: Fentanyl 100 MCG/2 ML VIAL ONE (06:48)
[2017-07-24] MEDS ORDERED: Silver Sulfadiazine 1% Cream 50 GM TUBE TP ONE (08:30)
--- NOTE | 2017-07-24 10:47 | RAD ---
CHEST 1 VIEW: Date: 07/24/17 HISTORY: Hypoxic. COMPARISON: 07/22/17. FINDINGS: Abnormal increased interstitial and air space opacities throughout the lungs, worse than the comparis on examination. Heart size is enlarged. Central venous catheter tip cavoatrial junction. IMPRESSION: Worsening interstitial and alveolar opacities, concerning for worsening confluent edema. Underlying i nfectious process and ARDS is also a possibility. POS: AMANUELH
[2017-07-24] MEDS: Heparin 5,000 UNITS/ML VIAL SC SCH ×3 (11:49→21:39)
[2017-07-24] MEDS ORDERED: Lidocaine 1% PF 5 ML VIAL ONE (12:10)
[2017-07-24] MEDS ORDERED: ePHEDrine/0.9% NaCl/PF SYRINGE 50 mg/10 ml ONE (12:10)
[2017-07-24] MEDS ORDERED: PROPOFOL 200 MG/20 ML VIAL ONE (12:10)
[2017-07-24] MEDS ORDERED: PHENYLEPHRINE-NS 100 MCG/ML 10 ML SYRINGE ONE (12:10)
[2017-07-24] MEDS ORDERED: Succinylcholine Chloride 20 MG/ML 10 ml SYRINGE FS ONE (12:10)
[2017-07-24 13:24] LABS: Vancomycin, Trough 17.1 ug/mL
--- NOTE | 2017-07-24 13:39 | PDOC.PN ---
- Subjective Encounter Start Date: 07/24/17 Encounter Start Time: 13:39 Ptient seen and examined following acute cholecystitis, sepsis w hypotension. No acute events overnight - Objective Vital Signs & Weight: Vital Signs (12 hours) Temp Pulse Resp BP Pulse Ox 07/24/17 11:10 97.5 F L 73 16 94 L 07/24/17 04:55 97.9 F 84 20 127/80 97 Weight Admit Weight 130 lb 11.746 oz Weight 137 lb 6 oz Most Recent Monitor Data Heart Rate from ECG 86 NIBP 102/77 NIBP BP-Mean 87 Respiration from ECG 19 SpO2 98 I&O: 07/23/17 07/24/17 07/25/17 06:59 06:59 06:59 Intake Total 4677.4 3450 Output Total 1550 3520 Balance 3127.4 -70 Result Diagrams: 07/24/17 04:55 07/24/17 04:55 Phys Exam - Physical Examination HEENT: moist MMs, sclera anicteric, oral pharynx no lesions Neck: supple, full ROM Respiratory: no wheezing, no rales, no rhonchi, clear to auscultation bilateral Cardiovascular: no significant murmur, no rub Gastrointestinal: soft, non-tender, no distention, positive bowel sounds Musculoskeletal: no edema, pulses present Skin: no rash, normal turgor Dx/Plan (1) Acute cholecystitis Code(s): K81.0 - ACUTE CHOLECYSTITIS Status: Acute (2) Sepsis associated hypotension Code(s): A41.9 - SEPSIS, UNSPECIFIED ORGANISM Status: Acute (3) Mental retardation Code(s): F79 - UNSPECIFIED INTELLECTUAL DISABILITIES Status: Chronic - Plan cont current plan of care, plan discussed w/ family, continue antibiotics, PT/OT , social services analyst, DVT proph w/heparin Continue antibiotics, PT/OT. f/u cultures Review of Systems - Medications/Allergies Allergies/Adverse Reactions: Allergies Allergy/AdvReac Type Severity Reaction Status Date / Time No Known Drug Allergies Allergy Verified 07/22/17 04:46 Medications: Current Medications Acetaminophen (Tylenol) 1,000 mg PO Q6HR [facility] Last Admin: 07/24/17 12:41 Dose: 1,000 mg Albuterol/Ipratropium (Duoneb) 3 ml NEB [id number] PRN PRN Reason: SOB &/or Wheezing Last Admin: 07/23/17 21:53 Dose: 3 ml Heparin Sodium (Porcine) (Heparin) 5,000 units SC TID [facility] Last Admin: 07/24/17 11:49 Dose: Not Given Sodium Chloride (Normal Saline 0.9%) 1,000 mls @ 100 mls/hr IV .Q10H [facility] Last Admin: 07/24/17 05:05 Dose: 1,000 mls Piperacillin Sod/Tazobactam (Sod 3.375 gm/ Sodium Chloride) 100 mls @ 200 mls/ hr IVPB 0500,1100,1700,2300 [facility] Last Admin: 07/24/17 12:41 Dose: 100 mls Vancomycin HCl 1 gm/ Device 200 mls @ 200 mls/hr IVPB 0130,1330 [facility] Last Admin: 07/24/17 01:51 Dose: 200 mls Miscellaneous Medication (Pharmacy To Dose) 1 each IVPB ONE PRN PRN Reason: Pharmacy to dose Stop: 08/01/17 04:44 Morphine Sulfate (Morphine Sulfate) 2 mg SLOW IVP Q4H PRN PRN Reason: Breakthrough Pain Nystatin (Mycostatin Powder) 2 gm TOP BID PRN PRN Reason: Topical Irritations Last Admin: 07/23/17 12:48 Dose: 2 gm Tramadol HCl (Ultram) 50 mg PO Q6H PRN PRN Reason: Moderate Pain (4-6) Tramadol HCl (Ultram) 100 mg PO Q6H PRN PRN Reason: Severe Pain (7-10) Last Admin: 07/23/17 12:53 Dose: 100 mg
--- NOTE | 2017-07-24 13:42 | OP ---
DATE OF PROCEDURE: 07/24/2017 PREOPERATIVE DIAGNOSIS: Phimosis. POSTOPERATIVE DIAGNOSIS: Phimosis with severe penile adhesions. PROCEDURE: Circumcision with penoplasty. FINDINGS: Severe adhesions requiring approximately an extra 30 minutes for adequate excision and repair of adherent foreskin. SURGEON: Delfina Haines M.D. ANESTHESIA: General with endotracheal tube as well as penile block using 12 mL lidocaine and Marcaine mixture. SPECIMENS: Foreskin. COMPLICATIONS: None other than the severe adhesions requiring excess time and manipulation. DRAIN: A urethral Faust. ESTIMATED BLOOD LOSS: 50 mL. INDICATIONS: The patient is a 61-year-old gentleman with special needs who was admitted with acute cholecystitis and presumed sepsis from that, who underwent an urgent laparoscopic cholecystectomy, but at the same time was noted to have severe phimosis. A catheter could not be placed. He also had a history of prior urinary tract infections. I placed the catheter and wanted to set him up for definitive circumcision at this hospital stay, so we planned for this and discussed it with his sister and niece. TECHNIQUE: The patient was brought into the room by Anesthesia, laid on the table in supine position. After receiving general anesthetic, he was prepped and draped in sterile fashion and a penile block using 12 mL lidocaine and Marcaine was performed. Markings were made with the foreskin reduced at the level of the ovalle and then attempt to retract the foreskin was unsuccessful, so a dorsal slit was performed; however, the dorsal slit was also not successful in splitting the glans as it was just completely adherent to everything, but the meatus itself so a significant and tedious dissection, the foreskin was removed from the glans with blunt dissection and sharp dissection and electrocautery given all this significant intervention and presumed resulting swelling. I replaced a Faust catheter that had been removed before he was prepped to ensure that there would be no significant swelling that would preclude voiding in the first 24 hours after the procedure, so continued with the dissection. The glans was finally fully exposed and now quite raw and hemostasis was achieved with electrocautery. The excess shaft skin had to be modified at this point, so a ventral excision of a triangular portion of tissue was then performed in order to be able to reapproximate the proximal skin to the ovalle, 3-0 and 4-0 chromic were then used in circumferential fashion to attach the normal appearing epidermis to the abnormal appearing coronal margin as there was no epidermis to sew it to at this time. A 3-0 chromic was used in running fashion on the vertical incision on the ventral portion. Silvadene was applied to the glans and a sterile dressing was placed including a Coban dressing around the penis itself and then with the Faust catheter secured to drainage. He was awakened and transferred to the PACU in stable condition. DIANA
[2017-07-25] MEDS: Acetaminophen 500 MG TAB PO SCH ×5 (00:01→23:54)
[2017-07-25] MEDS: Vancomycin HCl 1 GM in Premix Bag 1 BAG IVPB SCH ×2 (01:34→13:35)
[2017-07-25] MEDS: Sodium Chloride 0.9% 1,000 ML IV SCH ×3 (05:15→22:44)
[2017-07-25 06:11] LABS: ALT (SGPT) 42 U/L (8-55); AST (SGOT) 33 U/L (5-34); Albumin 2.3 g/dL (3.4-4.8); Alkaline Phosphatase 67 U/L (40-150); Anion Gap 10 mmol/L (10-20); BUN (Urea Nitrogen) 14 mg/dL (8.4-25.7); Bilirubin, Total 0.2 mg/dL (0.2-1.2); Calc. Creatinine Clearance 60 mL/min (70-130); Calcium 7.7 mg/dL (7.8-10.44); Carbon Dioxide 25 mmol/L (23-31); Chloride 108 mmol/L (98-107); Estimated GFR-MDRD 66; Globulin 3.2 g/dL (2.4-3.5); Glucose 146 mg/dL (80-115); Protein, Total 5.5 g/dL (5.8-8.1); Sodium 139 mmol/L (136-145)
[2017-07-25 06:24] LABS: Band 11 % (5-11); Hemoglobin 9.7 g/dL (14.0-18.0); Lymphocytes 4 % (21-51); MDiff Complete? YES; Mean Corpuscular HGB CONC 30.6 g/dL (32.0-36.0); Mean Corpuscular Hemoglobin 31.4 pg (27.0-31.0); Mean Platelet Volume 6.6 fL (7.4-10.4); Metamyelocyte 1 % (0-0); Monocytes 4 % (0-10); Neutrophil 80 % (42-75); Nucleated RBC 1 % (0); Platelet Count 128 thou/uL (130-400); RBC Distribution Width 14.4 % (11.5-14.5); White Blood Cell (WBC) Count 17.7 thou/uL (4.8-10.8)
[2017-07-25] MEDS: Piperacillin/Tazobactam 3.375 GM in Sodium Chloride 0.9% 100 ML IVPB SCH ×5 (06:55→23:54)
[2017-07-25] MEDS: Heparin 5,000 UNITS/ML VIAL SC SCH ×3 (09:36→20:52)
--- NOTE | 2017-07-25 11:28 | PRG ---
DATE OF SERVICE: 07/25/2017 SUBJECTIVE: Mr. Lott is a 61-year-old man who is 3 days status post laparoscopic cholecystectomy. The patient is awake and alert. He is tolerating diet. He is postop day #1 status post adult circ umcision. His pain is adequately controlled. He is tolerating liquid diet. OBJECTIVE: VITAL SIGNS: Currently includes blood pressure 116/65, pulse 77, respiratory rate 20, maximum temper ature in the last 24 hours is 99.1 degrees Fahrenheit, oxygen saturation is 92% on 4 liters by nasal cannula oxygen. HEENT: Examination reveals normocephalic and atraumatic. Pupils are equal, round, reactive to light and accommodation. HEART: Reveals regular rate and rhythm. No murmurs or gallops auscultated. LUNGS: Clear to auscultation bilaterally. Breathing is regular and unlabored. ABDOMEN: Soft and moderately distended. Bowel sounds in all four quadrants appear normoactive. Inc isions are intact, clean, and dry. No peritoneal signs on examination. EXTREMITIES: Reveals 2+ radial and pedal pulses bilaterally. No ankle edema is present. NEUROLOGIC: Examination reveals no focal deficits present. LABORATORY DATA: Laboratory findings today includes CBC with decreasing white blood cell count of 17 ,700, hemoglobin and hematocrit stable at 9.7 and 31.7 respectively. Platelet count is 128,000. Met abolic profile; sodium 139, potassium 4.0, chloride is 108, bicarbonate is 25, BUN 14, creatinine is 1.12, glucose is 146, total bilirubin is 0.2, AST and ALT normal at 33 and 42 respectively. Serum li pase was not obtained today. IMPRESSION: 1. Postoperative day #3, status post laparoscopic cholecystectomy, hemodynamically stable. 2. Resolved acute severe septic shock. 3. Postop day #1 status post adult circumcision. PLAN: Advance diet and activity as tolerated. The patient is stable for discharge [facility] a [facility]. Discharge will therefore be determined per primary service.
[2017-07-25] MEDS ORDERED: Magnesium Citrate 300 ML BOT PO PRN (13:43)
[2017-07-25] MEDS ORDERED: Magnesium Citrate 300 ML BOT PO SCH (13:45)
--- NOTE | 2017-07-25 13:45 | PDOC.PN ---
- Subjective Encounter Start Date: 07/25/17 Encounter Start Time: 13:45 patient seen and examined. he was admitted for sepsis w hypotension 2/2 acute cholecystitis. he is s/p Cholecystectomy and doing well. no acute events overnight. - Objective MAR Reviewed: Yes Vital Signs & Weight: Vital Signs (12 hours) Temp Pulse Resp BP Pulse Ox Pulse Ox Pulse Ox 07/25/17 12:00 97.6 F 70 20 128/81 92 L 07/25/17 08:30 88 L 91 L 07/25/17 08:11 98.3 F 77 20 116/65 92 L 07/25/17 07:45 97.6 F 70 20 07/25/17 04:00 99.1 F 89 18 118/72 91 L Weight Admit Weight 130 lb 11.746 oz Weight 130 lb 5 oz Most Recent Monitor Data Heart Rate from ECG 86 NIBP 102/77 NIBP BP-Mean 87 Respiration from ECG 19 SpO2 98 I&O: 07/24/17 07/25/17 07/26/17 06:59 06:59 06:59 Intake Total 3450 2760 Output Total 3520 3575 Balance -70 -815 Result Diagrams: 07/25/17 05:30 07/25/17 05:30 Phys Exam - Physical Examination Constitutional: NAD HEENT: moist MMs, sclera anicteric, oral pharynx no lesions Neck: supple, full ROM Respiratory: no wheezing, no rales, no rhonchi, clear to auscultation bilateral Cardiovascular: RRR, no significant murmur, no rub Gastrointestinal: soft, non-tender, no distention, positive bowel sounds Musculoskeletal: no edema, pulses present Skin: no rash, normal turgor Dx/Plan (1) Acute cholecystitis Code(s): K81.0 - ACUTE CHOLECYSTITIS Status: Acute (2) Mental retardation Code(s): F79 - UNSPECIFIED INTELLECTUAL DISABILITIES Status: Chronic (3) Phimosis Code(s): N47.1 - PHIMOSIS Status: Acute (4) Sepsis associated hypotension Code(s): A41.9 - SEPSIS, UNSPECIFIED ORGANISM Status: Resolved - Plan cont current plan of care, plan discussed w/ family s/p cholecystectomy and circumcision. Dooing well.Afebrile and no signs of infection. - Discontinue Vancomycin - Continue Zosyn for now - Bowel regimen for constipation - home in next 24-48 hours. Review of Systems - Medications/Allergies Allergies/Adverse Reactions: Allergies Allergy/AdvReac Type Severity Reaction Status Date / Time No Known Drug Allergies Allergy Verified 07/22/17 04:46 Medications: Current Medications Acetaminophen (Tylenol) 1,000 mg PO Q6HR [facility] Last Admin: 07/25/17 11:27 Dose: 1,000 mg Albuterol/Ipratropium (Duoneb) 3 ml NEB [id number] PRN PRN Reason: SOB &/or Wheezing Last Admin: 07/23/17 21:53 Dose: 3 ml Docusate Sodium (Colace) 100 mg PO BID [facility] Heparin Sodium (Porcine) (Heparin) 5,000 units SC TID [facility] Last Admin: 07/25/17 09:36 Dose: 5,000 units Sodium Chloride (Normal Saline 0.9%) 1,000 mls @ 100 mls/hr IV .Q10H [facility] Last Admin: 07/25/17 09:41 Dose: 1,000 mls Piperacillin Sod/Tazobactam (Sod 3.375 gm/ Sodium Chloride) 100 mls @ 200 mls/ hr IVPB 0500,1100,1700,2300 [facility] Last Admin: 07/25/17 11:27 Dose: 100 mls Vancomycin HCl 1 gm/ Device 200 mls @ 200 mls/hr IVPB 0130,1330 [facility] Last Admin: 07/25/17 13:35 Dose: 200 mls Magnesium Citrate (Citrate Of Magnesia 300 Ml Bot) 300 ml PO ONE [facility] Miscellaneous Medication (Pharmacy To Dose) 1 each IVPB ONE PRN PRN Reason: Pharmacy to dose Stop: 08/01/17 04:44 Morphine Sulfate (Morphine Sulfate) 2 mg SLOW IVP Q4H PRN PRN Reason: Breakthrough Pain Last Admin: 07/24/17 21:38 Dose: 2 mg Nystatin (Mycostatin Powder) 2 gm TOP BID PRN PRN Reason: Topical Irritations Last Admin: 07/23/17 12:48 Dose: 2 gm Tramadol HCl (Ultram) 50 mg PO Q6H PRN PRN Reason: Moderate Pain (4-6) Tramadol HCl (Ultram) 100 mg PO Q6H PRN PRN Reason: Severe Pain (7-10) Last Admin: 07/25/17 00:00 Dose: 100 mg
[2017-07-25] MEDS: traMADol HCl 50 MG TAB PO PRN ×2 (15:34)
[2017-07-25] MEDS ORDERED: Tamsulosin HCl 0.4 MG CAP PO SCH (17:45)
--- NOTE | 2017-07-25 19:02 | PRG ---
DATE OF SERVICE: 07/25/2017 SUBJECTIVE: The patient did well overnight. The catheter was removed without difficulty. There was some question of how much he has urinated, but he did have a bowel movement and voided then as well as some into brief. Vital signs stable; however, he is requiring more oxygen. We discussed this and incentive spirometry. He is currently able to do about 500 on that. He is asleep on his side with both his penis and scrotum being compressed by his legs , so he was repositioned, but that is elevated and without being compressed and there is minimal swelling in the glans appears raw but without any concerns for infection and the sutures are in place accordingly. ASSESSMENT AND PLAN: We have a 61-year-old gentleman with concerns for benign prostatic hypertrophy as well as prior urinary tract infections, status post circumcision for severe adherent phimosis and adhesions. I will start tamsulosin at this time and I reviewed that with his family and I would like to see him in the office in 4 weeks to reexamine his wound. I would keep him on the tamsulosin in an outpatient for now. Please call if there are further concerns. DIANA
[2017-07-25] MEDS: Docusate 100 MG CAP PO SCH (20:52)
[2017-07-26] MEDS: Piperacillin/Tazobactam 3.375 GM in Sodium Chloride 0.9% 100 ML IVPB SCH ×4 (05:56→22:40)
[2017-07-26] MEDS: Acetaminophen 500 MG TAB PO SCH ×4 (05:57→23:12)
[2017-07-26 06:34] LABS: ALT (SGPT) 44 U/L (8-55); AST (SGOT) 33 U/L (5-34); Albumin 2.2 g/dL (3.4-4.8); Alkaline Phosphatase 69 U/L (40-150); Anion Gap 8 mmol/L (10-20); BUN (Urea Nitrogen) 11 mg/dL (8.4-25.7); Bilirubin, Total 0.2 mg/dL (0.2-1.2); Calc. Creatinine Clearance 65 mL/min (70-130); Calcium 7.7 mg/dL (7.8-10.44); Carbon Dioxide 26 mmol/L (23-31); Chloride 109 mmol/L (98-107); Estimated GFR-MDRD 78; Globulin 3.2 g/dL (2.4-3.5); Glucose 134 mg/dL (80-115); Potassium 3.8 mmol/L (3.5-5.1); Protein, Total 5.4 g/dL (5.8-8.1); Sodium 139 mmol/L (136-145)
[2017-07-26 06:52] LABS: Hemoglobin 10.2 g/dL (14.0-18.0); Mean Corpuscular HGB CONC 32.5 g/dL (32.0-36.0); Mean Corpuscular Hemoglobin 33.5 pg (27.0-31.0); Mean Platelet Volume 6.6 fL (7.4-10.4); Platelet Count 124 thou/uL (130-400); RBC Distribution Width 14.7 % (11.5-14.5); Red Blood Cell (RBC) Count 3.05 mill/uL (4.70-6.10); White Blood Cell (WBC) Count 13.4 thou/uL (4.8-10.8)
[2017-07-26] MEDS ORDERED: BIFIDOBACTERIUM INFANTIS 4 MG PO PRN (07:29)
[2017-07-26] MEDS ORDERED: Furosemide 40 MG/4 ML VIAL SLOW IVP SCH (07:30)
[2017-07-26] MEDS ORDERED: Albuterol Sulfate 2.5 mg/3 ml Neb NEB SCH ×2 (07:30→13:00)
[2017-07-26 07:52] LABS: Band 20 % (5-11); Eosinophils 1 % (0-10); Lymphocytes 7 % (21-51); MDiff Complete? YES; Metamyelocyte 1 % (0-0); Monocytes 6 % (0-10); Neutrophil 65 % (42-75); PLT Morphology Comment Appears Decreased; Polychromasia SLIGHT = 2-3 cells (100X) (0-2/hpf)
--- NOTE | 2017-07-26 10:29 | PDOC.PN ---
- Subjective Encounter Start Date: 07/26/17 Encounter Start Time: 10:40 Patient seen and examined today. he was admitted for sepsis, acute cholecystitis and phimosis. He is doing better but continues to require oxygen supplementation. No acute events overnight. - Objective MAR Reviewed: Yes Vital Signs & Weight: Vital Signs (12 hours) Temp Pulse Resp BP Pulse Ox 07/26/17 08:00 97.8 F 75 16 130/70 92 L 07/25/17 22:56 97.8 F 70 16 127/81 93 L Weight Admit Weight 130 lb 11.746 oz Weight 141 lb 3.2 oz Most Recent Monitor Data Heart Rate from ECG 86 NIBP 102/77 NIBP BP-Mean 87 Respiration from ECG 19 SpO2 98 I&O: 07/25/17 07/26/17 07/27/17 06:59 06:59 06:59 Intake Total 2760 1520 Output Total 3575 100 Balance -815 1420 Result Diagrams: 07/26/17 06:14 07/26/17 06:14 Phys Exam - Physical Examination Constitutional: NAD HEENT: moist MMs, sclera anicteric, oral pharynx no lesions Neck: supple, full ROM Respiratory: no wheezing, no rales, no rhonchi, clear to auscultation bilateral Cardiovascular: RRR, no significant murmur, no rub Gastrointestinal: soft, non-tender, no distention, positive bowel sounds Musculoskeletal: no edema, pulses present Neurological: non-focal, moves all 4 limbs Skin: no rash, normal turgor Dx/Plan (1) Hypoxia Code(s): R09.02 - HYPOXEMIA Status: Acute Comment: has required supplemental O2 since admission. Not on home O2. CXR shows some pissible vascular congestion. Will give furosemide and bronchodilators. Wean off O2. IV fluids discontinued. (2) Acute cholecystitis Code(s): K81.0 - ACUTE CHOLECYSTITIS Status: Acute Comment: s/p laparascopic cholecystectomy. Doing well post op. (3) Mental retardation Code(s): F79 - UNSPECIFIED INTELLECTUAL DISABILITIES Status: Chronic (4) Phimosis Code(s): N47.1 - PHIMOSIS Status: Acute Comment: s/p circumcision. Will f/u with urology on outpatient basis. (5) Sepsis associated hypotension Code(s): A41.9 - SEPSIS, UNSPECIFIED ORGANISM Status: Resolved - Plan cont current plan of care, plan discussed w/ family, continue antibiotics, respiratory therapy, DVT proph w/heparin * . Review of Systems - Medications/Allergies Allergies/Adverse Reactions: Allergies Allergy/AdvReac Type Severity Reaction Status Date / Time No Known Drug Allergies Allergy Verified 07/22/17 04:46 Medications: Current Medications Acetaminophen (Tylenol) 1,000 mg PO Q6HR [facility] Last Admin: 07/26/17 05:57 Dose: 1,000 mg Albuterol Sulfate (Ventolin) 2.5 mg NEB [id number] ENOC Albuterol Sulfate (Ventolin) 2.5 mg NEB ONE [facility] Stop: 07/26/17 12:00 Albuterol/Ipratropium (Duoneb) 3 ml NEB [id number] PRN PRN Reason: SOB &/or Wheezing Last Admin: 07/23/17 21:53 Dose: 3 ml Cyanocobalamin (Vitamin B-12) 500 mcg PO DAILY [facility] Docusate Sodium (Colace) 100 mg PO BID [facility] Last Admin: 07/25/17 20:52 Dose: Not Given Ferrous Sulfate (Feosol) 325 mg PO DAILY [facility] Furosemide (Lasix) 40 mg SLOW IVP ONE [facility] Stop: 07/26/17 12:00 Furosemide (Lasix) 20 mg SLOW IVP 0600,1400 [facility] Heparin Sodium (Porcine) (Heparin) 5,000 units SC TID [facility] Last Admin: 07/25/17 20:52 Dose: 5,000 units Piperacillin Sod/Tazobactam (Sod 3.375 gm/ Sodium Chloride) 100 mls @ 200 mls/ hr IVPB 0500,1100,1700,2300 [facility] Last Admin: 07/26/17 05:56 Dose: 100 mls Iron/Minerals/Multivitamins (Theragran M) 1 tab PO DAILY [facility] Levothyroxine Sodium (Synthroid) 100 mcg PO DAILY [facility] Magnesium Citrate (Citrate Of Magnesia 300 Ml Bot) 300 ml PO DAILYPRN PRN PRN Reason: Constipation Morphine Sulfate (Morphine Sulfate) 2 mg SLOW IVP Q4H PRN PRN Reason: Breakthrough Pain Last Admin: 07/24/17 21:38 Dose: 2 mg Nystatin (Mycostatin Powder) 2 gm TOP BID PRN PRN Reason: Topical Irritations Last Admin: 07/23/17 12:48 Dose: 2 gm (Bifidobacterium Infantis [Align] 4 Mg) Hm Med 0 each PO DAILY PRN PRN Reason: Constipation Tamsulosin HCl (Flomax) 0.4 mg PO DAILY [facility] Tramadol HCl (Ultram) 50 mg PO Q6H PRN PRN Reason: Moderate Pain (4-6) Tramadol HCl (Ultram) 100 mg PO Q6H PRN PRN Reason: Severe Pain (7-10) Last Admin: 07/25/17 15:34 Dose: 100 mg
[2017-07-26] MEDS ORDERED: Albuterol Sulfate 2.5 mg/3 ml Neb NEB PRN (10:31)
[2017-07-26] MEDS: Cyanocobalamin (Vitamin B-12) 1,000 MCG TAB PO SCH (10:38)
[2017-07-26] MEDS: Multivitamin W/ Minerals 1 TAB PO SCH (10:38)
[2017-07-26] MEDS: Ferrous Sulfate 325 MG TAB PO SCH (10:38)
[2017-07-26] MEDS: Tamsulosin HCl 0.4 MG CAP PO SCH (10:38)
[2017-07-26] MEDS: Levothyroxine Sodium 100 MCG TAB PO SCH (10:38)
[2017-07-26] MEDS: Docusate 100 MG CAP PO SCH ×2 (10:38→22:02)
[2017-07-26] MEDS: Heparin 5,000 UNITS/ML VIAL SC SCH ×3 (10:39→22:00)
[2017-07-26] MEDS: traMADol HCl 50 MG TAB PO PRN (10:57)
[2017-07-26] MEDS: Furosemide 20 MG/2 ML VIAL SLOW IVP SCH (15:48)
[2017-07-27 04:39] LABS: ALT (SGPT) 43 U/L (8-55); AST (SGOT) 30 U/L (5-34); Albumin 2.3 g/dL (3.4-4.8); Alkaline Phosphatase 73 U/L (40-150); Anion Gap 8 mmol/L (10-20); BUN (Urea Nitrogen) 9 mg/dL (8.4-25.7); Bilirubin, Total 0.3 mg/dL (0.2-1.2); Calc. Creatinine Clearance 76 mL/min (70-130); Calcium 7.9 mg/dL (7.8-10.44); Carbon Dioxide 26 mmol/L (23-31); Chloride 108 mmol/L (98-107); Estimated GFR-MDRD 84; Globulin 3.3 g/dL (2.4-3.5); Glucose 168 mg/dL (80-115); Potassium 3.6 mmol/L (3.5-5.1); Protein, Total 5.6 g/dL (5.8-8.1); Sodium 138 mmol/L (136-145)
[2017-07-27 06:03] LABS: Band 11 % (5-11); Hemoglobin 9.8 g/dL (14.0-18.0); Lymphocytes 8 % (21-51); MDiff Complete? YES; Macrocytosis SLIGHT = 6-15 cells (100X) (0-5/hpf); Mean Corpuscular Hemoglobin 33.3 pg (27.0-31.0); Mean Platelet Volume 6.9 fL (7.4-10.4); Metamyelocyte 7 % (0-0); Monocytes 13 % (0-10); Myelocyte 2 % (0-0); Neutrophil 56 % (42-75); Nucleated RBC 1 % (0); PLT Morphology Comment Appears Adequate; Platelet Count 135 thou/uL (130-400); RBC Distribution Width 14.6 % (11.5-14.5); Reactive Lymphocytes 2 % (0-10); Red Blood Cell (RBC) Count 2.93 mill/uL (4.70-6.10); White Blood Cell (WBC) Count 10.9 thou/uL (4.8-10.8)
[2017-07-27] MEDS: Piperacillin/Tazobactam 3.375 GM in Sodium Chloride 0.9% 100 ML IVPB SCH ×2 (06:23→13:03)
[2017-07-27] MEDS: Furosemide 20 MG/2 ML VIAL SLOW IVP SCH ×2 (06:26→14:57)
[2017-07-27] MEDS: Acetaminophen 500 MG TAB PO SCH ×3 (06:27→18:10)
[2017-07-27] MEDS: Cyanocobalamin (Vitamin B-12) 1,000 MCG TAB PO SCH (09:53)
[2017-07-27] MEDS: Ferrous Sulfate 325 MG TAB PO SCH (09:54)
[2017-07-27] MEDS: Levothyroxine Sodium 100 MCG TAB PO SCH (09:54)
[2017-07-27] MEDS: Tamsulosin HCl 0.4 MG CAP PO SCH (09:54)
[2017-07-27] MEDS: Heparin 5,000 UNITS/ML VIAL SC SCH ×3 (09:54→21:27)
[2017-07-27] MEDS: Docusate 100 MG CAP PO SCH ×2 (09:55→21:15)
[2017-07-27] MEDS: Multivitamin W/ Minerals 1 TAB PO SCH (09:55)
--- NOTE | 2017-07-27 11:19 | PDOC.PN ---
- Subjective Encounter Start Date: 07/27/17 Encounter Start Time: 11:40 Patient seen and examined. Admitted for sepsis and Acute cholecystitis. Also had circumcision for phimosis. No complaints, no acute events overnight. Still rquiring supplemental O2 with O2 saturations in the high 80s at rest on room air. - Objective Vital Signs & Weight: Vital Signs (12 hours) Temp Pulse Resp BP Pulse Ox 07/27/17 07:55 98.4 F 66 18 123/70 92 L 07/27/17 04:49 97.9 F 63 17 141/73 H 94 L 07/27/17 00:49 98.9 F 73 14 131/68 93 L Weight Admit Weight 130 lb 11.746 oz Weight 145 lb Most Recent Monitor Data Heart Rate from ECG 86 NIBP 102/77 NIBP BP-Mean 87 Respiration from ECG 19 SpO2 98 I&O: 07/26/17 07/27/17 07/28/17 06:59 06:59 06:59 Intake Total 1520 1200 Output Total 100 850 Balance 1420 350 Result Diagrams: 07/27/17 03:40 07/27/17 03:40 Phys Exam - Physical Examination Constitutional: NAD HEENT: moist MMs, sclera anicteric, oral pharynx no lesions Neck: supple, full ROM Respiratory: no wheezing, no rales, no rhonchi DECREASED BREATH SOUNDS BILATERALLY Cardiovascular: RRR, no significant murmur, no rub Gastrointestinal: soft, non-tender, no distention, positive bowel sounds Musculoskeletal: no edema, pulses present Neurological: non-focal, moves all 4 limbs Skin: no rash, normal turgor Dx/Plan (1) Hypoxia Code(s): R09.02 - HYPOXEMIA Status: Acute Comment: Still requiring supplemental O2 since admission. Not on home O2. CXR shows vascular congestion. Continue furosemide, bronchodilators and encourage incentive spirometry. (2) Mental retardation Code(s): F79 - UNSPECIFIED INTELLECTUAL DISABILITIES Status: Chronic (3) Phimosis Code(s): N47.1 - PHIMOSIS Status: Acute Comment: s/p circumcision. Will f/u with urology on outpatient basis. (4) Sepsis associated hypotension Code(s): A41.9 - SEPSIS, UNSPECIFIED ORGANISM Status: Resolved (5) Acute cholecystitis Code(s): K81.0 - ACUTE CHOLECYSTITIS Status: Resolved Comment: s/p laparascopic cholecystectomy. Doing well post op. - Plan cont current plan of care, respiratory therapy, incentive spirometry, out of bed /ambulate, DVT proph w/heparin * . Review of Systems - Medications/Allergies Allergies/Adverse Reactions: Allergies Allergy/AdvReac Type Severity Reaction Status Date / Time No Known Drug Allergies Allergy Verified 07/22/17 04:46 Medications: Current Medications Acetaminophen (Tylenol) 1,000 mg PO Q6HR [facility] Last Admin: 07/27/17 06:27 Dose: 1,000 mg Albuterol Sulfate (Ventolin) 2.5 mg NEB [id number] PRN PRN Reason: SOB &/or Wheezing Albuterol/Ipratropium (Duoneb) 3 ml NEB [id number] [facility] Last Admin: 07/27/17 08:46 Dose: Not Given Cyanocobalamin (Vitamin B-12) 500 mcg PO DAILY [facility] Last Admin: 07/27/17 09:53 Dose: 500 mcg Docusate Sodium (Colace) 100 mg PO BID [facility] Last Admin: 07/27/17 09:55 Dose: Not Given Ferrous Sulfate (Feosol) 325 mg PO DAILY [facility] Last Admin: 07/27/17 09:54 Dose: 325 mg Furosemide (Lasix) 20 mg SLOW IVP 0600,1400 [facility] Last Admin: 07/27/17 06:26 Dose: 20 mg Heparin Sodium (Porcine) (Heparin) 5,000 units SC TID [facility] Last Admin: 07/27/17 09:54 Dose: 5,000 units Piperacillin Sod/Tazobactam (Sod 3.375 gm/ Sodium Chloride) 100 mls @ 200 mls/ hr IVPB 0500,1100,1700,2300 [facility] Last Admin: 07/27/17 06:23 Dose: 100 mls Iron/Minerals/Multivitamins (Theragran M) 1 tab PO DAILY [facility] Last Admin: 07/27/17 09:55 Dose: 1 tab Levothyroxine Sodium (Synthroid) 100 mcg PO DAILY [facility] Last Admin: 07/27/17 09:54 Dose: 100 mcg Magnesium Citrate (Citrate Of Magnesia 300 Ml Bot) 300 ml PO DAILYPRN PRN PRN Reason: Constipation Morphine Sulfate (Morphine Sulfate) 2 mg SLOW IVP Q4H PRN PRN Reason: Breakthrough Pain Last Admin: 07/24/17 21:38 Dose: 2 mg Nystatin (Mycostatin Powder) 2 gm TOP BID PRN PRN Reason: Topical Irritations Last Admin: 07/23/17 12:48 Dose: 2 gm Tamsulosin HCl (Flomax) 0.4 mg PO DAILY [facility] Last Admin: 07/27/17 09:54 Dose: 0.4 mg Tramadol HCl (Ultram) 50 mg PO Q6H PRN PRN Reason: Moderate Pain (4-6) Last Admin: 07/26/17 10:57 Dose: 50 mg Tramadol HCl (Ultram) 100 mg PO Q6H PRN PRN Reason: Severe Pain (7-10) Last Admin: 07/25/17 15:34 Dose: 100 mg
[2017-07-27 11:54] VITALS: BMI 22.7
--- NOTE | 2017-07-27 14:04 | RAD ---
FRONTAL RADIOGRAPH CHEST: Date: 07-27-17 Comparison: 07-24-17 History: Vascular congestion. FINDINGS: Right sided vascular catheter in stable position, distal tip overlying the cavoatrial junction. No pn eumothorax is seen. Coarse interstitial and alveolar opacity noted in bilateral perihilar regions, the mid right lung zon e and both lung bases. There is also airspace disease and pleural fluid within both lung bases. IMPRESSION: Extensive interstitial and alveolar opacity with bibasilar pleural and parenchymal opacity. Findings suggest pulmonary edema. Superimposed infection or aspiration cannot be excluded. Follow up imaging f ollowing treatment advised to document resolution. POS: [facility]
[2017-07-27] MEDS: traMADol HCl 50 MG TAB PO PRN (16:04)
--- NOTE | 2017-07-27 17:16 | PQF ---
DARIO HUMPHRIES TARSHA MARRERO [id number] CLINICAL DOCUMENTATION IMPROVEMENT CLARIFICATION FORM: ICD-10 Updated PLEASE DO AN ADDENDUM TO THE PROGRESS NOTE WITH ANY DOCUMENTATION UPDATES OR ADDITIONS AND CARRY THROUGH TO DC SUMMARY. THANK YOU. DATE: 07-27-17 ATTN: DR. MARRERO Please exercise your independent, professional judgment in responding to the clarification form. Clinical indicators are provided on the bottom of this form for your review Please check appropriate box(s): [x ] Acute Respiratory Failure: [ x ] with Hypoxia [ ] with Hypercapnia [ ] Acute Respiratory Failure due to: (etiology) [ ] Hypoxia [ ] Other diagnosis [ ] Unable to determine In addition, please specify: Present on Admission (POA): [ x ] Yes [ ] No [ ] Unable to determine For continuity of documentation, please document condition throughout progress notes and discharge summary. Thank You. CLINICAL INDICATORS - SIGNS / SYMPTOMS / LABS 07-22 SPARKS CONSULT: DECREASED BREATH SOUNDS W/O ANY WHEEZING * PN 07-26/07-27 FADAYOMI: HYPOXIA STILL REQUIRING SUPPLEMENTAL O2 W/ O2 SATS IN HIGH 80'S ON RA NOT ON HOME O2 - CXR SHOWS VASCULAR CONGESTION 07-22 CXR: INCREASED PULMONARY VASCULAR CONGESTION AND RIGHT BASILAR ATELECTASIS 07-27 CXR: EXTENSIIVE INTERSTITIAL AND ALVEOLAR OPACITY W/ BIBASILAR PLEURAL AND PARENCHYMAL OPACITY. FINDING SUGGEST PULMONARY EDEMA. SUPERIMPOSED INFECTION OR ASPIRATION CANNOT BE EXCLUED. RISK FACTORS H&P: 2 EPISODES OF VOMITING AT HOME MENTAL RETARDATION SEVERE SEPSIS W/ SEPTIC SHOCK 07-22 LAPAROSCOPIC CHOLECYSTECTOMY 07-24 CIRCUMCISION W/ PENOPLASTY TREATMENTS: ICU MONITORING 07-21/07-22 PULM CONSULT 07-22 NURSING: ENCOURAGE INCENTIVE SPIROMETRY MAR: DUONEB 07-25 / 07-26/ 07-27 IV LASIX ZOSYN IV 07-22 TO 07-27 VANCOMYCIN 07-23 / 07-24/07-25 RT ASSESSMENT 07-22 O2 SAT 94% ON RA - THEN O2 LNC PER RN REQUEST FOR NOTED SPO2 DROPS 07-23 3LNC / 07-26 4LNC THANK YOU, DELLA (This form is maintained as a part of the permanent medical record) 2014 [employer] All Rights Reserved Della Hicks RN, BS [email or web address] [employer] [facility]
[2017-07-28] MEDS: Acetaminophen 500 MG TAB PO SCH ×5 (00:41→23:46)
[2017-07-28] MEDS: traMADol HCl 50 MG TAB PO PRN ×2 (00:42→14:42)
[2017-07-28] MEDS: Furosemide 20 MG/2 ML VIAL SLOW IVP SCH (06:36)
[2017-07-28 07:21] LABS: Hemoglobin 10.6 g/dL (14.0-18.0); Mean Corpuscular HGB CONC 32.7 g/dL (32.0-36.0); Mean Corpuscular Hemoglobin 33.4 pg (27.0-31.0); Mean Platelet Volume 6.7 fL (7.4-10.4); Platelet Count 160 thou/uL (130-400); RBC Distribution Width 14.6 % (11.5-14.5); Red Blood Cell (RBC) Count 3.19 mill/uL (4.70-6.10); White Blood Cell (WBC) Count 8.1 thou/uL (4.8-10.8)
[2017-07-28 07:37] LABS: Anion Gap 10 mmol/L (10-20); BUN (Urea Nitrogen) 10 mg/dL (8.4-25.7); Calc. Creatinine Clearance 73 mL/min (70-130); Calcium 8.3 mg/dL (7.8-10.44); Carbon Dioxide 29 mmol/L (23-31); Chloride 104 mmol/L (98-107); Estimated GFR-MDRD 78; Glucose 163 mg/dL (80-115); Potassium 3.3 mmol/L (3.5-5.1); Sodium 140 mmol/L (136-145)
[2017-07-28] MEDS ORDERED: Furosemide 20 MG/2 ML VIAL SLOW IVP SCH (07:43)
[2017-07-28] MEDS ORDERED: Potassium Chloride 20 MEQ TAB PO SCH ×2 (07:45→08:00)
[2017-07-28] MEDS ORDERED: Furosemide 40 MG/4 ML VIAL SLOW IVP SCH (08:15)
[2017-07-28] MEDS: Tamsulosin HCl 0.4 MG CAP PO SCH (08:22)
[2017-07-28] MEDS: Multivitamin W/ Minerals 1 TAB PO SCH (08:22)
[2017-07-28] MEDS: Ferrous Sulfate 325 MG TAB PO SCH (08:22)
[2017-07-28] MEDS: Cyanocobalamin (Vitamin B-12) 1,000 MCG TAB PO SCH (08:22)
[2017-07-28] MEDS: Docusate 100 MG CAP PO SCH ×2 (08:22→21:02)
[2017-07-28] MEDS: Heparin 5,000 UNITS/ML VIAL SC SCH ×3 (08:23→21:02)
[2017-07-28] MEDS: Levothyroxine Sodium 100 MCG TAB PO SCH (08:31)
--- NOTE | 2017-07-28 12:30 | PDOC.PN ---
- Subjective Encounter Start Date: 07/28/17 Encounter Start Time: 12:31 Patient seen and examined. Admitted for sepsis and Acute cholecystitis. Also had circumcision for phimosis. No complaints, no acute events overnight. Still requiring supplemental O2. - Objective MAR Reviewed: Yes Vital Signs & Weight: Vital Signs (12 hours) Temp Pulse Resp BP Pulse Ox 07/28/17 10:59 98.3 F 93 20 131/65 98 07/28/17 08:57 94 L 07/28/17 08:53 67 12 07/28/17 07:54 97.5 F L 67 18 134/77 94 L 07/28/17 07:50 97.5 F L 67 18 94 L 07/28/17 03:50 98.3 F 68 20 128/71 91 L Weight Admit Weight 130 lb 11.746 oz Weight 145 lb 0.039 oz Most Recent Monitor Data Heart Rate from ECG 86 NIBP 102/77 NIBP BP-Mean 87 Respiration from ECG 19 SpO2 98 I&O: 07/27/17 07/28/17 07/29/17 06:59 06:59 06:59 Intake Total 1200 1820 Output Total 850 Balance 350 1820 Result Diagrams: 07/28/17 07:16 07/28/17 07:16 Phys Exam - Physical Examination Constitutional: NAD HEENT: moist MMs, sclera anicteric, oral pharynx no lesions Neck: supple, full ROM Respiratory: no wheezing, no rales, no rhonchi educed breath sounds b/l Cardiovascular: RRR, no significant murmur, no rub Gastrointestinal: soft, non-tender, no distention, positive bowel sounds Musculoskeletal: no edema, pulses present Skin: normal turgor Dx/Plan (1) Acute respiratory failure with hypoxia Code(s): J96.01 - ACUTE RESPIRATORY FAILURE WITH HYPOXIA Status: Acute Comment: Has required supplemental O2 since admission. Not on home O2. CXR shows vascular congestion. Continue furosemide, bronchodilators and encourage incentive spirometry. (2) Mental retardation Code(s): F79 - UNSPECIFIED INTELLECTUAL DISABILITIES Status: Chronic (3) Phimosis Code(s): N47.1 - PHIMOSIS Status: Acute Comment: s/p circumcision. Will f/u with urology on outpatient basis. (4) Sepsis associated hypotension Code(s): A41.9 - SEPSIS, UNSPECIFIED ORGANISM Status: Resolved (5) Acute cholecystitis Code(s): K81.0 - ACUTE CHOLECYSTITIS Status: Resolved Comment: s/p laparascopic cholecystectomy. Doing well post op. - Plan cont current plan of care, incentive spirometry, out of bed/ambulate, DVT proph w/heparin * . Review of Systems - Medications/Allergies Allergies/Adverse Reactions: Allergies Allergy/AdvReac Type Severity Reaction Status Date / Time No Known Drug Allergies Allergy Verified 07/22/17 04:46 Medications: Current Medications Acetaminophen (Tylenol) 1,000 mg PO Q6HR [facility] Last Admin: 07/28/17 11:13 Dose: 1,000 mg Albuterol Sulfate (Ventolin) 2.5 mg NEB [id number] PRN PRN Reason: SOB &/or Wheezing Albuterol/Ipratropium (Duoneb) 3 ml NEB [id number] [facility] Last Admin: 07/28/17 08:53 Dose: 3 ml Cyanocobalamin (Vitamin B-12) 500 mcg PO DAILY [facility] Last Admin: 07/28/17 08:22 Dose: 500 mcg Docusate Sodium (Colace) 100 mg PO BID [facility] Last Admin: 07/28/17 08:22 Dose: 100 mg Ferrous Sulfate (Feosol) 325 mg PO DAILY [facility] Last Admin: 07/28/17 08:22 Dose: 325 mg Furosemide (Lasix) 40 mg SLOW IVP 0600,1400 [facility] Heparin Sodium (Porcine) (Heparin) 5,000 units SC TID [facility] Last Admin: 07/28/17 08:23 Dose: 5,000 units Iron/Minerals/Multivitamins (Theragran M) 1 tab PO DAILY [facility] Last Admin: 07/28/17 08:22 Dose: 1 tab Levothyroxine Sodium (Synthroid) 100 mcg PO DAILY [facility] Last Admin: 07/28/17 08:31 Dose: 100 mcg Magnesium Citrate (Citrate Of Magnesia 300 Ml Bot) 300 ml PO DAILYPRN PRN PRN Reason: Constipation Nystatin (Mycostatin Powder) 2 gm TOP BID PRN PRN Reason: Topical Irritations Last Admin: 07/23/17 12:48 Dose: 2 gm Potassium Chloride (K-Dur) 20 meq PO QAM-WM [facility] Sodium Chloride (Flush - Normal Saline) 10 ml IVF Q12HR [facility] Last Admin: 07/28/17 08:31 Dose: 10 ml Sodium Chloride (Flush - Normal Saline) 10 ml IVF PRN PRN PRN Reason: Saline Flush Tamsulosin HCl (Flomax) 0.4 mg PO DAILY [facility] Last Admin: 07/28/17 08:22 Dose: 0.4 mg Tramadol HCl (Ultram) 50 mg PO Q6H PRN PRN Reason: Moderate Pain (4-6) Last Admin: 07/28/17 00:42 Dose: 50 mg Tramadol HCl (Ultram) 100 mg PO Q6H PRN PRN Reason: Severe Pain (7-10) Last Admin: 07/25/17 15:34 Dose: 100 mg
[2017-07-28] MEDS: Furosemide 40 MG/4 ML VIAL SLOW IVP SCH (14:37)
--- NOTE | 2017-07-28 15:12 | PRG ---
DATE OF SERVICE: 07/28/2017 SUBJECTIVE: This is a 61-year-old male postop day #6 status post laparoscopic cholecystectomy by Dr. Carter. During my brief visit this afternoon, the patient was working with physical therapy. He voc alized no complaints. Nursing staff reports multiple bowel movements in the last 24 hours. OBJECTIVE: VITAL SIGNS: Temperature 98.3, pulse 93, respiration 20, O2 sat 98% on 2 liters nasal cannula, blood pressure 131/65. GENERAL: Well-developed male in no acute distress, working with physical therapy. PULMONARY: Normal work of breathing. Symmetric rise on nasal cannula. GASTROINTESTINAL: Abdomen is mildly distended, but soft and nontender. MUSCULOSKELETAL: Moves all extremities x4. NEUROLOGIC: No focal deficit noted. LABORATORY DATA: WBC 8.1, hemoglobin 10.6, hematocrit 32.6, platelet count 160. Sodium 140, potassi um 3.3, chloride 104, carbon dioxide 29, BUN 10, creatinine 0.97, glucose 163. ASSESSMENT: 1. Status post laparoscopic cholecystectomy, postop day #6. 2. Resolved severe septic shock. 3. Status post adult circumcision. 4. Hypoxic respiratory failure. PLAN: Surgical team will continue to follow from a distance. The patient seems to be doing well sta tus post cholecystectomy. Please call us with any questions or concerns. The patient was discussed with Dr. Carter.
[2017-07-29] MEDS: Acetaminophen 500 MG TAB PO SCH ×4 (05:42→23:52)
[2017-07-29] MEDS: Furosemide 40 MG/4 ML VIAL SLOW IVP SCH ×2 (05:42→15:18)
[2017-07-29] MEDS: Levothyroxine Sodium 100 MCG TAB PO SCH (07:55)
[2017-07-29] MEDS: Cyanocobalamin (Vitamin B-12) 1,000 MCG TAB PO SCH (07:55)
[2017-07-29] MEDS: Potassium Chloride 20 MEQ TAB PO SCH (07:55)
[2017-07-29] MEDS: Tamsulosin HCl 0.4 MG CAP PO SCH (07:55)
[2017-07-29] MEDS: Multivitamin W/ Minerals 1 TAB PO SCH (07:55)
[2017-07-29] MEDS: Docusate 100 MG CAP PO SCH ×2 (07:55→21:47)
[2017-07-29] MEDS: Heparin 5,000 UNITS/ML VIAL SC SCH ×3 (07:56→21:47)
[2017-07-29] MEDS: Ferrous Sulfate 325 MG TAB PO SCH (08:04)
--- NOTE | 2017-07-29 15:24 | PDOC.PN ---
- Subjective Encounter Start Date: 07/29/17 Encounter Start Time: 10:00 Pt seen for followup re: acute respiratory failure with hypoxia. Denies chest pain, shortness of breath, fevers or chills. - Objective MAR Reviewed: Yes Vital Signs & Weight: Vital Signs (12 hours) Temp Pulse Resp BP Pulse Ox 07/29/17 12:29 71 16 97 07/29/17 12:26 97.1 F L 77 12 124/72 94 L 07/29/17 08:25 98 F 89 12 94 L 07/29/17 08:12 98 F 89 12 123/67 96 07/29/17 07:04 97 07/29/17 06:44 97 16 95 07/29/17 04:21 97.5 F L 78 20 164/74 H 97 Weight Admit Weight 130 lb 11.746 oz Weight 132 lb 1.6 oz Most Recent Monitor Data Heart Rate from ECG 86 NIBP 102/77 NIBP BP-Mean 87 Respiration from ECG 19 SpO2 98 I&O: 07/28/17 07/29/17 07/30/17 06:59 06:59 06:59 Intake Total 1820 1670 Balance 1820 1670 Result Diagrams: 07/28/17 07:16 07/28/17 07:16 Additional Labs: Labs reviewed by me Phys Exam - Physical Examination Constitutional: NAD HEENT: moist MMs Neck: supple Respiratory: clear to auscultation bilateral Cardiovascular: RRR Gastrointestinal: soft Musculoskeletal: edema present Psychiatric: normal affect Dx/Plan (1) Acute respiratory failure with hypoxia Code(s): J96.01 - ACUTE RESPIRATORY FAILURE WITH HYPOXIA Status: Acute Comment: currently on supplemental oxygen (2) Phimosis Code(s): N47.1 - PHIMOSIS Status: Acute Comment: s/p circumcision. (3) Mental retardation Code(s): F79 - UNSPECIFIED INTELLECTUAL DISABILITIES Status: Chronic (4) Acute cholecystitis Code(s): K81.0 - ACUTE CHOLECYSTITIS Status: Resolved Comment: s/p laparascopic cholecystectomy. - Plan * . Review of Systems - Review of Systems Respiratory: negative: Cough, Shortness of Breath, SOB with Excertion, Pleuritic Pain, Wheezing Cardiovascular: negative: chest pain, palpitations, orthopnea, paroxysmal nocturnal dyspnea, edema, light headedness - Medications/Allergies Allergies/Adverse Reactions: Allergies Allergy/AdvReac Type Severity Reaction Status Date / Time No Known Drug Allergies Allergy Verified 07/22/17 04:46 Medications: Current Medications Acetaminophen (Tylenol) 1,000 mg PO Q6HR [facility] Last Admin: 07/29/17 11:26 Dose: 1,000 mg Albuterol Sulfate (Ventolin) 2.5 mg NEB [id number] PRN PRN Reason: SOB &/or Wheezing Albuterol/Ipratropium (Duoneb) 3 ml NEB [id number] [facility] Last Admin: 07/29/17 12:29 Dose: 3 ml Cyanocobalamin (Vitamin B-12) 500 mcg PO DAILY [facility] Last Admin: 07/29/17 07:55 Dose: 500 mcg Docusate Sodium (Colace) 100 mg PO BID [facility] Last Admin: 07/29/17 07:55 Dose: 100 mg Ferrous Sulfate (Feosol) 325 mg PO DAILY [facility] Last Admin: 07/29/17 08:04 Dose: 325 mg Furosemide (Lasix) 40 mg SLOW IVP 0600,1400 [facility] Last Admin: 07/29/17 05:42 Dose: 40 mg Heparin Sodium (Porcine) (Heparin) 5,000 units SC TID [facility] Last Admin: 07/29/17 07:56 Dose: 5,000 units Iron/Minerals/Multivitamins (Theragran M) 1 tab PO DAILY [facility] Last Admin: 07/29/17 07:55 Dose: 1 tab Levothyroxine Sodium (Synthroid) 100 mcg PO DAILY [facility] Last Admin: 07/29/17 07:55 Dose: 100 mcg Magnesium Citrate (Citrate Of Magnesia 300 Ml Bot) 300 ml PO DAILYPRN PRN PRN Reason: Constipation Nystatin (Mycostatin Powder) 2 gm TOP BID PRN PRN Reason: Topical Irritations Last Admin: 07/23/17 12:48 Dose: 2 gm Potassium Chloride (K-Dur) 20 meq PO QAM-WM [facility] Last Admin: 07/29/17 07:55 Dose: 20 meq Sodium Chloride (Flush - Normal Saline) 10 ml IVF Q12HR [facility] Last Admin: 07/29/17 08:04 Dose: 10 ml Sodium Chloride (Flush - Normal Saline) 10 ml IVF PRN PRN PRN Reason: Saline Flush Last Admin: 07/28/17 14:40 Dose: 10 ml Tamsulosin HCl (Flomax) 0.4 mg PO DAILY [facility] Last Admin: 07/29/17 07:55 Dose: 0.4 mg Tramadol HCl (Ultram) 50 mg PO Q6H PRN PRN Reason: Moderate Pain (4-6) Last Admin: 07/28/17 14:42 Dose: 50 mg Tramadol HCl (Ultram) 100 mg PO Q6H PRN PRN Reason: Severe Pain (7-10) Last Admin: 07/25/17 15:34 Dose: 100 mg
--- NOTE | 2017-07-29 16:45 | PRG ---
DATE OF SERVICE: 07/29/2017 ATTENDING PHYSICIAN: Dr. True Carter. SUBJECTIVE: Mr. Lott is a 61-year-old male status post laparoscopic cholecystectomy, postoperativ e day number 7. He is seen today lying in bed. He reports pain is much less today. Bowel function has been normal. OBJECTIVE: VITAL SIGNS: Temperature 97.1, pulse 77, respirations 12, O2 sat 94% on 1.5 liters O2 nasal cannula, blood pressure 124/72. GENERAL: Well-developed, well-nourished male, in no acute distress. PULMONARY: Bilateral breath sounds clear. No respiratory distress. ABDOMEN: Soft, nontender, nondistended. Laparoscopic surgical incisions without signs of infection. MUSCULOSKELETAL: Moves all extremities x4. NEUROLOGIC: History of intellectual delay. Appears to be at baseline. ASSESSMENT: 1. Status post laparoscopic cholecystectomy, postoperative day number 7. 2. Status post adult circumcision, this hospitalization. 3. Hypoxic respiratory failure. 4. Followed by Hospital Medicine. PLAN: 1. Continue to follow and to monitor status post cholecystectomy. 2. Medical care per Hospital Medicine Service. The patient was seen and examined with Dr. Carter who agrees with plan.
[2017-07-30] MEDS: Acetaminophen 500 MG TAB PO SCH ×3 (06:00→17:34)
[2017-07-30] MEDS: Furosemide 40 MG/4 ML VIAL SLOW IVP SCH ×2 (06:00→17:34)
[2017-07-30] MEDS ORDERED: Bisacodyl 5 MG TAB PO PRN (08:05)
[2017-07-30] MEDS ORDERED: Bisacodyl 5 MG TAB PO SCH (08:15)
--- NOTE | 2017-07-30 09:35 | PDOC.PN ---
- Subjective Encounter Start Date: 07/30/17 Encounter Start Time: 07:20 Pt seen for followup re: acute respiratory failure with hypoxia. Reports abdo pain, unable to elaborate. Last BM 3 days ago. - Objective MAR Reviewed: Yes Vital Signs & Weight: Vital Signs (12 hours) Temp Pulse Resp BP Pulse Ox 07/30/17 07:25 99.6 F 73 14 106/62 97 07/30/17 06:40 82 16 96 07/30/17 04:00 98 F 72 16 115/78 97 07/29/17 23:57 97.9 F 83 16 124/69 94 L Weight Admit Weight 130 lb 11.746 oz Weight 123 lb 6.4 oz Most Recent Monitor Data Heart Rate from ECG 86 NIBP 102/77 NIBP BP-Mean 87 Respiration from ECG 19 SpO2 98 I&O: 07/29/17 07/30/17 07/31/17 06:59 06:59 06:59 Intake Total 1670 2145 Balance 1670 2145 Result Diagrams: 07/28/17 07:16 07/28/17 07:16 Additional Labs: Labs reviewed by me Phys Exam - Physical Examination Constitutional: NAD HEENT: moist MMs Neck: supple Respiratory: clear to auscultation bilateral Cardiovascular: RRR Gastrointestinal: soft Neurological: moves all 4 limbs Psychiatric: normal affect 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 (4) Mental retardation Code(s): F79 - UNSPECIFIED INTELLECTUAL DISABILITIES Status: Chronic (5) Acute cholecystitis Code(s): K81.0 - ACUTE CHOLECYSTITIS Status: Resolved Comment: s/p lap brad - Plan * . Review of Systems - Review of Systems Constitutional: negative: fever, chills, sweats, weakness, malaise Gastrointestinal: Abdominal Pain, Constipation. negative: Nausea, Vomiting, Diarrhea, Melena, Hematochezia - Medications/Allergies Allergies/Adverse Reactions: Allergies Allergy/AdvReac Type Severity Reaction Status Date / Time No Known Drug Allergies Allergy Verified 07/22/17 04:46 Medications: Current Medications Acetaminophen (Tylenol) 1,000 mg PO Q6HR [facility] Last Admin: 07/30/17 06:00 Dose: 1,000 mg Albuterol Sulfate (Ventolin) 2.5 mg NEB [id number] PRN PRN Reason: SOB &/or Wheezing Albuterol/Ipratropium (Duoneb) 3 ml NEB [id number] [facility] Last Admin: 07/30/17 06:40 Dose: 3 ml Bisacodyl (Dulcolax) 10 mg PO DAILYPRN PRN PRN Reason: Constipation Bisacodyl (Dulcolax) 10 mg PO NOW [facility] Stop: 07/30/17 10:30 Cyanocobalamin (Vitamin B-12) 500 mcg PO DAILY [facility] Last Admin: 07/29/17 07:55 Dose: 500 mcg Docusate Sodium (Colace) 100 mg PO BID [facility] Last Admin: 07/29/17 21:47 Dose: 100 mg Ferrous Sulfate (Feosol) 325 mg PO DAILY [facility] Last Admin: 07/29/17 08:04 Dose: 325 mg Furosemide (Lasix) 40 mg SLOW IVP 0600,1400 [facility] Last Admin: 07/30/17 06:00 Dose: 40 mg Heparin Sodium (Porcine) (Heparin) 5,000 units SC TID [facility] Last Admin: 07/29/17 21:47 Dose: 5,000 units Heparin Sodium (Porcine) (Heparin Lock Flush 100 Units/Ml) 500 units IVF Q12HR [facility] Last Admin: 07/29/17 21:47 Dose: 500 unit Heparin Sodium (Porcine) (Heparin Lock Flush 100 Units/Ml) 500 units IVF PRN PRN PRN Reason: Heparin Flush Last Admin: 07/29/17 18:18 Dose: 500 unit Iron/Minerals/Multivitamins (Theragran M) 1 tab PO DAILY [facility] Last Admin: 07/29/17 07:55 Dose: 1 tab Levothyroxine Sodium (Synthroid) 100 mcg PO DAILY [facility] Last Admin: 07/29/17 07:55 Dose: 100 mcg Magnesium Citrate (Citrate Of Magnesia 300 Ml Bot) 300 ml PO DAILYPRN PRN PRN Reason: Constipation Nystatin (Mycostatin Powder) 2 gm TOP BID PRN PRN Reason: Topical Irritations Last Admin: 07/23/17 12:48 Dose: 2 gm Potassium Chloride (K-Dur) 20 meq PO QAM-WM [facility] Last Admin: 07/29/17 07:55 Dose: 20 meq Sodium Chloride (Flush - Normal Saline) 10 ml IVF Q12HR [facility] Last Admin: 07/29/17 21:48 Dose: 10 ml Sodium Chloride (Flush - Normal Saline) 10 ml IVF PRN PRN PRN Reason: Saline Flush Last Admin: 07/28/17 14:40 Dose: 10 ml Sodium Chloride (Flush - Normal Saline) 10 ml IVF Q12HR [facility] Last Admin: 07/29/17 21:48 Dose: 10 ml Sodium Chloride (Flush - Normal Saline) 10 ml IVF PRN PRN PRN Reason: Saline Flush Tamsulosin HCl (Flomax) 0.4 mg PO DAILY [facility] Last Admin: 07/29/17 07:55 Dose: 0.4 mg Tramadol HCl (Ultram) 50 mg PO Q6H PRN PRN Reason: Moderate Pain (4-6) Last Admin: 07/28/17 14:42 Dose: 50 mg Tramadol HCl (Ultram) 100 mg PO Q6H PRN PRN Reason: Severe Pain (7-10) Last Admin: 07/25/17 15:34 Dose: 100 mg
[2017-07-30] MEDS: Tamsulosin HCl 0.4 MG CAP PO SCH (09:37)
[2017-07-30] MEDS: Cyanocobalamin (Vitamin B-12) 1,000 MCG TAB PO SCH (09:37)
[2017-07-30] MEDS: Levothyroxine Sodium 100 MCG TAB PO SCH (09:37)
[2017-07-30] MEDS: Potassium Chloride 20 MEQ TAB PO SCH (09:38)
[2017-07-30] MEDS: Multivitamin W/ Minerals 1 TAB PO SCH (09:38)
[2017-07-30] MEDS: Docusate 100 MG CAP PO SCH ×2 (09:38→20:37)
[2017-07-30] MEDS: Ferrous Sulfate 325 MG TAB PO SCH (09:39)
[2017-07-30] MEDS: Heparin 5,000 UNITS/ML VIAL SC SCH ×3 (09:39→20:46)
--- NOTE | 2017-07-30 16:54 | PRG ---
DATE OF SERVICE: 07/30/2017 ATTENDING PHYSICIAN: Dr. True Carter. SUBJECTIVE: Mr. Lott is a 61-year-old male status post laparoscopic cholecystectomy, postoperative day #8. He was seen today lying in bed. He is reportedly complaining of abdominal pain. Nurse reports that the patient has been prescribed mag citrate by Primary Hospital Medicine team. OBJECTIVE: VITAL SIGNS: Temperature 99.6, pulse 73, respirations 14, O2 sat 97% on 1.5 liters nasal cannula, blood pressure 106/62. GENERAL: Well-developed, well-nourished male in no acute distress. PULMONARY: Bilateral breath sounds clear. No respiratory distress. ABDOMEN: Soft, nontender to palpation, nondistended. Laparoscopic surgical incisions without signs of infection. MUSCULOSKELETAL: Moves all extremities. NEUROLOGIC: History of intellectual delay. Appears to be at baseline. ASSESSMENT: 1. Status post laparoscopic cholecystectomy on postoperative day #8. 2. Status post adult circumcision. 3. Hypoxic respiratory failure, resolved. 4. Followed by Hospital Medicine. 5. Constipation. PLAN: 1. Continue to follow and monitor status post cholecystectomy. 2. Prior to the end of assessment, the patient reports that his abdominal pain has resolved. 3. Medical care per Primary Medical Service. The patient was seen and examined with Dr. Carter who agrees with plan. [facility]
[2017-07-31] MEDS: Acetaminophen 500 MG TAB PO SCH ×3 (00:28→14:36)
[2017-07-31 04:53] LABS: Hemoglobin 10.7 g/dL (14.0-18.0); Mean Corpuscular HGB CONC 32.1 g/dL (32.0-36.0); Mean Corpuscular Hemoglobin 32.6 pg (27.0-31.0); Mean Platelet Volume 6.6 fL (7.4-10.4); Platelet Count 301 thou/uL (130-400); RBC Distribution Width 15.2 % (11.5-14.5); Red Blood Cell (RBC) Count 3.26 mill/uL (4.70-6.10); White Blood Cell (WBC) Count 7.4 thou/uL (4.8-10.8)
[2017-07-31 05:44] LABS: Anion Gap 14 mmol/L (10-20); BUN (Urea Nitrogen) 13 mg/dL (8.4-25.7); Calc. Creatinine Clearance 56 mL/min (70-130); Calcium 8.8 mg/dL (7.8-10.44); Carbon Dioxide 31 mmol/L (23-31); Chloride 94 mmol/L (98-107); Estimated GFR-MDRD 69; Glucose 99 mg/dL (80-115); Sodium 135 mmol/L (136-145)
[2017-07-31] MEDS: Furosemide 40 MG/4 ML VIAL SLOW IVP SCH (05:59)
[2017-07-31] MEDS: Levothyroxine Sodium 100 MCG TAB PO SCH (08:58)
[2017-07-31] MEDS: traMADol HCl 50 MG TAB PO PRN (08:58)
[2017-07-31] MEDS: Potassium Chloride 20 MEQ TAB PO SCH (08:59)
[2017-07-31] MEDS: Multivitamin W/ Minerals 1 TAB PO SCH (08:59)
[2017-07-31] MEDS: Cyanocobalamin (Vitamin B-12) 1,000 MCG TAB PO SCH (08:59)
[2017-07-31] MEDS: Ferrous Sulfate 325 MG TAB PO SCH (08:59)
[2017-07-31] MEDS: Tamsulosin HCl 0.4 MG CAP PO SCH (09:00)
[2017-07-31] MEDS: Heparin 5,000 UNITS/ML VIAL SC SCH (09:00)
[2017-07-31] MEDS: Docusate 100 MG CAP PO SCH (09:00)
--- NOTE | 2017-07-31 11:14 | PRG ---
DATE OF SERVICE: 07/31/2017 ATTENDING PHYSICIAN: Dr. True Carter. SUBJECTIVE: Mr. Lott is a 61-year-old male status post laparoscopic cholecystectomy, postoperativ e day #9. He is seen today lying in bed. He reports the pain is much better. He has had adequate r eturn of bowel function. He denies any pain. OBJECTIVE: VITAL SIGNS: Temperature 97.1, pulse 83, respirations 18, O2 sat 95% on room air, blood pressure 115 /69. GENERAL: Well-developed, well-nourished male in no acute distress. PULMONARY: Bilateral breath sounds clear. No respiratory distress. ABDOMEN: Soft, nontender to palpation, nondistended. Laparoscopic surgical incision healing well wi thout signs of infection. MUSCULOSKELETAL: Moves all extremities. NEUROLOGIC: History of intellectual delay, appears to be at baseline. ASSESSMENT: 1. Status post laparoscopic cholecystectomy, postoperative day #9. 2. Status post adult circumcision, followed by Urology. PLAN: Patient may be discharged from trauma surgical standpoint. The patient does not need follow u p in Trauma Surgical Clinic as this is postoperative day #9 and he has been followed every day in the hospital. He should continue with 10-15 pound lifting restrictions for complete 2 weeks. He may fo llow up with Dr. Carter as needed. This patient was reviewed with Dr. Carter at the time of this dictation and Dr. Carter agrees with plan .
--- NOTE | 2017-07-31 14:16 | DIS ---
PRIMARY CARE PHYSICIAN: Maggie Varela DATE OF ADMISSION: 07/22/2017 DATE OF DISCHARGE: 07/31/2017 DISCHARGE DIAGNOSES: 1. Acute gangrenous acalculous cholecystitis. 2. Severe septic shock. 3. Acute kidney injury. 4. Phimosis. 5. Bacteremia with Aerococcus urinae. CONDITION OF PATIENT ON THE DAY OF DISCHARGE: Stable. I assessed Mr. Lott on the day of discharg e. He denies any chest pain or shortness of breath. Vital signs are stable. S1 and S2 are heard, r egular. Lungs are clear to auscultation bilaterally. DISCHARGE MEDICATIONS: Align 4 mg daily as needed, vitamin B12 100 mcg daily, ferrous sulfate 325 mg daily, furosemide 20 mg daily for 7 more days, levothyroxine 100 mcg daily, Men's 50+ daily formula 1 tablet daily, Flomax 0.4 mg daily. CONSULTATIONS DURING THIS HOSPITALIZATION: General Surgery, Dr. Carter and Urology, Dr. Delfina Haines. HOSPITAL COURSE: Mr. Lott is a pleasant 61-year-old gentleman who was admitted to [facility] on 07/22/2017 for septic shock secondary to acute cholecystitis. Right upper quad rant ultrasound showed mild gallbladder wall thickening. He was seen by General Surgery Service as w ell as the Urology Service for phimosis. On 07/22/2017 he underwent laparoscopic cholecystectomy by General Surgery Service. On 07/24/2017 he underwent a circumcision with penoplasty by Urology Carmita foreman. He was also started on Flomax by Urology Service. He was initially treated with antibiotics. 2/ 2 blood cultures grew Aerococcus urinae. Antibiotics were subsequently stopped. He continued to pro gressively improve. He has been cleared for discharge by Surgical Service on 07/31/2017. He also developed acute respiratory failure with hypoxia during this hospitalization, most likely sec ondary to volume overload. It improved with intravenous furosemide. He is being stepped down to ora l furosemide for 1 more week and then to be reassessed by primary care provider. On the day of discharge, he has white count 7400, hemoglobin 10.7, platelet count 301,000. Sodium 13 5, potassium 4 and creatinine 1.09. Many thanks for allowing me to participate in your patient's care. Please feel free to contact me wi th any questions or concerns. DISCHARGE DESTINATION: Home, which is a residential. TOTAL AMOUNT OF TIME SPENT COORDINATING THIS DISCHARGE: 35 minutes.
[2017-07-31 16:14] VITALS: BP 105/67; TEMP 98.3
== END 2017-07-31 16:25 | disposition home or self-care (01) | DRG 853 ==
LOC: ERS 22:06 → CCU 07-22 05:16 → SURG A 07-23 13:41
PROVIDERS: ADMIT Internal Medicine; ATTEND Internal Medicine
PROC: 0FT44ZZ Resection of Gallbladder, Percutaneous Endoscopic Approach (ICD-10-PCS; principal; 2017-07-22)
PROC: 0VQSXZZ Repair Penis, External Approach (ICD-10-PCS; 2017-07-24)
PROC: 0VTTXZZ Resection of Prepuce, External Approach (ICD-10-PCS; 2017-07-24)
DX: A41.89 Other specified sepsis (principal); R65.21 Severe sepsis with septic shock; J96.01 Acute respiratory failure with hypoxia; N17.9 Acute kidney failure, unspecified; E87.2 Acidosis; K81.0 Acute cholecystitis; F79 Unspecified intellectual disabilities; E03.9 Hypothyroidism, unspecified; E86.0 Dehydration; N47.1 Phimosis; K59.00 Constipation, unspecified; E87.70 Fluid overload, unspecified; Z87.440 Personal history of urinary (tract) infections; Z79.899 Other long term (current) drug therapy
CPT/HCPCS: 36415; 36556; 71045; 74176; 76705; 80048; 80053; 80202; 81015; 82533; 82550; 83605; 83690; 83735; 83880; 85007; 85025; 85027; 87040; 87077; 87086; 87149; 88304; 93005; 94640; 96361; 96365; 96367; 96375; 99292; A4216; G8978-GP-CJ; G8979-GP-CJ; G8980-GP-CJ; G8996-GN-CJ; G8997-GN-CJ; J1170; J1642; J1644; J1720; J1940; J2001; J2250; J2270; J2543; J2704; J3010; J3370; J7050; J7620; S0020

== ENCOUNTER 2018-10-23 22:33 | Emergency (ER) | payer MEDICARE, MEDICAID ==
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
== END 2018-10-23 23:36 | disposition home or self-care (01) ==
LOC: ERS 22:33
DX: M25.511 Pain in right shoulder (principal); E03.9 Hypothyroidism, unspecified; V89.2XXA Person injured in unspecified motor-vehicle accident, traffic, initial encounter
CPT/HCPCS: 71045